=== PATIENT | male | born 1960 | race Caucasian/White ===

== ENCOUNTER 2021-09-21 08:11 | Emergency (ER) | payer OTHER, MEDICAID, SELFPAY ==
[2021-09-21] VITALS (9 sets, daily range): BP systolic 124–155; BP diastolic 77–98; PULSE 101–109; RESP 22–24; TEMP 36.9; O2SAT 93–98; BMI 24.0
--- NOTE | 2021-09-21 08:37 | DI.RAD.S_ITS ---
PROCEDURE: XR CHEST 2V INDICATIONS: shortness of breath TECHNIQUE: 2 views of the chest were acquired. COMPARISON: [facility], CR, XR CHEST 1 VIEW, 12/26/2020, 14:34. [facility], CR, XR CHEST 1 VIEW, 04/12/2021, 4:53. FINDINGS: Surgical changes and devices: None. Lungs and pleura: Scattered subsegmental atelectasis and/or scarring. No focal consolidation. No pleural effusion or pneumothorax. There is streaky and patchy opacities involving the right lung base. Mediastinum: Mediastinal contours are normal. Heart size is normal. Bones and chest wall: No suspicious bony abnormalities. Soft tissues appear unremarkable. IMPRESSION: Scattered subsegmental atelectasis and/or scarring. Streaky medial right lower lobe opacities probably atelectasis versus low-grade aspiration. No focal consolidation. If there is persistent clinical diagnostic uncertainty, continued surveillance with short interval radiographic followup after treatment is recommended. Dictated by: Danilo Garcia M.D. on 09/21/2021 at 9:43 Approved by: Danilo Garcia M.D. on 09/21/2021 at 9:47
[2021-09-21 08:49] LABS: Add Manual Diff / Slide Review NO; Basophils Absolute Auto 100 /uL (0-100); Basophils Percent Auto 0.7 % (0-2); Eosinophils Absolute Auto 100 /uL (0-450); Eosinophils Percent Auto 0.6 % (2-4); Hematocrit 45.9 % (41-53); Hemoglobin 15.3 g/dL (13.5-17.5); Lymphocytes Absolute Auto 900 /uL (1100-4500); Lymphocytes Percent Auto 9.6 % (25-40); Mean Corpuscular HGB Conc 33.3 % (30-36); Mean Corpuscular Hemoglobin 27.8 PG (26-34); Mean Corpuscular Volume 83.5 fL (80-100); Monocytes Absolute Auto 1200 /uL (0-900); Monocytes Percent Auto 13.4 % (3-14); Neutrophils Absolute Auto 7000 /uL (1500-7000); Neutrophils Percent Auto 75.7 % (50-75); Platelet Count 235 X10^3/uL (150-400); Red Blood Cell Count 5.49 X10^6/uL (4.5-5.9); Red Cell Distribution Width 18.1 % (11.6-14.8); White Blood Cell Count 9.3 X10^3/uL (4.5-11.0)
[2021-09-21 08:57] LABS: Lactate (Lactic Acid) 0.9 mmol/L (0.7-2.1)
[2021-09-21 08:58] LABS: Alanine Aminotransferase 28 IU/L (<50); Albumin 4.4 g/dL (3.5-5.0); Albumin Globulin Ratio 1.5 (1.0-2.8); Alkaline Phosphatase 121 U/L (38-126); Aspartate Aminotransferase 33 IU/L (17-59); Bilirubin Total 1.1 mg/dL (0.2-1.3); Blood Urea Nitrogen 37 mg/dL (9-20); Calcium 9.1 mg/dL (8.4-10.2); Carbon Dioxide 27 mmol/L (22-32); Chloride 101 mmol/L (98-107); Estimated Glomerular Filt Rate 46.5 mL/min (>60); Glucose 117 mg/dL (70-100); HEMOLYSIS < 15 (0-50); Potassium 4.1 mmol/L (3.4-5.1); Sodium 135 mmol/L (137-145); Total Protein 7.4 g/dL (6.3-8.2)
[2021-09-21 09:03] LABS: COVID19 -Nasal RAPID Negative (Negative)
[2021-09-21 09:06] LABS: NT-proBNP (BNP-Adult 18+) 3990 pg/mL (<125)
[2021-09-21] MEDS: ALBUTEROL HFA MDI 60 PUFF/8 GM INHALER INH (09:07)
--- NOTE | 2021-09-21 09:12 | ED.URI ---
HPI - URI/Sore Throat General Chief Complaint: Shortness of Breath/Dyspnea Stated Complaint: cant catch breath on different meds Time Seen by Provider: 09/21/21 08:54 Source: patient Mode of arrival: Ambulatory Limitations: no limitations History of Present Illness HPI Narrative: Patient here for cough cold congestion fevers chills with productive cough. Patient states former heavy cigarette smoker. History of bronchitis and pneumonia in the past. Out of his inhaler for many months. Recently moved back to [place] in the past year. Primary care is in [place]. Is on Eliquis but he states unsure why. He had a heart catheterization but states no blockage. Denies any stroke. Is on Lasix for CHF. Denies any limb swelling or weight gain. Related Data Previous Rx's Medication Instructions Recorded albuterol sulfate 90 mcg/actuation 2 inhalation INHALATION QID PRN 09/21/21 aerosol inhaler (Ventolin HFA) #6.7 gram benzonatate 100 mg capsule 100 mg PO TID PRN #20 cap 09/21/21 (Tessalon Perles) methylprednisolone 4 mg tablets in See Rx Instructions .ROUTE 09/21/21 a dose pack (Medrol (Jeovany)) .COMPLEX #21 each Allergies Allergy/AdvReac Type Severity Reaction Status Date / Time No Known Drug Allergies Allergy Verified 09/21/21 08:39 Review of Systems Review of Systems Narrative: GENERAL: Positivechills, fatigue, malaise, fever, sweats. HEENT: Denies sinus pain, ear pain, sore throat RESPIRATORY: Complains dyspnea, cough CARDIOVASCULAR: Denies chest pain, palpitations GASTROINTESTINAL: Denies nausea, vomiting, abdominal pain : Denies dysuria, frequency, hematuria MUSCULOSKELETAL: denies muscle or bony pain SKIN: Denies rash, skin lesions NEUROLOGIC: Denies weakness, numbness ROS Unobtainable: All systems reviewed & are unremarkable except as noted in HPI and below Patient History Social History Smoking Status: Current every day smoker Smoking Status: Current every day smoker alcohol intake frequency: holidays/special occasions only Substance Use Type: does not use Exam Narrative Exam Narrative: GENERAL: in no distress, not toxic not dyspneic HEAD: Normocephalic. EYES: Pupils equal round No scleral icterus. ENT: Mucous membranes moist. NECK: Trachea midline. CARDIOVASCULAR: Regular rate and rhythm without murmurs RESPIRATORY: Diminished lung sounds bilaterally. Speaks full sentences. No wheezes, rales, or rhonchi. GASTROINTESTINAL: Abdomen soft, non-tender EXTREMITIES: No gross deformities. BACK: No flank tenderness. NEURO: AOx4. SKIN: Warm and dry PSYCH: Not anxious, is cooperative Initial Vital Signs Initial Vital Signs: Vital Signs Temperature 98.4 F 09/21/21 08:30 Pulse Rate 106 H 09/21/21 08:30 Respiratory Rate 24 09/21/21 08:30 Blood Pressure 155/92 H 09/21/21 08:30 Pulse Oximetry 96 09/21/21 08:30 Course Course Course Narrative: No new issues during course of stay Orders Ordered: Discontinued Medications Albuterol (Albuterol Hfa Mdi 60 Puff/8 Gm Inhaler) 2 puff INH NOW ONE Stop: 09/21/21 08:55 Last Admin: 09/21/21 09:07 Dose: 2 puff Documented by: ALONZO Albuterol/Ipratropium (Albuterol/Ipratropium 3 Ml Ampul) 3 ml INH NOW ONE Stop: 09/21/21 09:14 Last Admin: 09/21/21 09:16 Dose: 3 ml Documented by: ALONZO Methylprednisolone (Methylprednisolone 125 Mg/2 Ml Vial) 125 mg IV NOW ONE Stop: 09/21/21 09:13 Last Admin: 09/21/21 09:20 Dose: 125 mg Documented by: ÓSCAR Reevaluation(s) Reevaluation #1: Patient feeling much better after Solu-Medrol and breathing treatments. Full and equal lung sounds. Not toxic. No dyspnea. Reviewed results with patient. Understands no forms of smoking. BNP reviewed with him but clinically not CHF. Time: 10:45 Vital Signs Vital signs: Vital Signs - 8 hr 09/21/21 08:30 09/21/21 09:05 09/21/21 09:17 Temperature 98.4 F Pulse Rate 106 H 106 H 106 H Respiratory Rate 24 24 22 Blood Pressure 155/92 H Pulse Oximetry 96 97 94 MDM - URI/Sore Throat Differential Diagnosis Differential diagnosis: Likely upper respiratory infection, viral infection, bronchitis and other (Pneumonia) Lab Data Result diagrams: 09/21/21 08:35 09/21/21 08:35 Labs: Lab Results 09/21/21 09/21/21 09/21/21 Range/Units 08:35 08:35 08:35 WBC 9.3 (4.5-11.0) X10^3/uL RBC 5.49 (4.5-5.9) X10^6/uL Hgb 15.3 (13.5-17.5) g/dL Hct 45.9 (41-53) % MCV 83.5 (80-100) fL MCH 27.8 (26-34) PG MCHC 33.3 (30-36) % RDW 18.1 H (11.6-14.8) % Plt Count 235 (150-400) X10^3/uL Neut % (Auto) 75.7 H (50-75) % Lymph % (Auto) 9.6 L (25-40) % Carter % (Auto) 13.4 (3-14) % Eos % (Auto) 0.6 L (2-4) % Baso % (Auto) 0.7 (0-2) % Neut # (Auto) 7000 (2374-8206) /uL Lymph # (Auto) 900 L (1819-8360) /uL Carter # (Auto) 1200 H (0-900) /uL Eos # (Auto) 100 (0-450) /uL Baso # (Auto) 100 (0-100) /uL Sodium 135 L (137-145) mmol/L Potassium 4.1 (3.4-5.1) mmol/L Chloride 101 (98-107) mmol/L Carbon Dioxide 27 (22-32) mmol/L BUN 37 H (9-20) mg/dL Creatinine 1.54 H (0.66-1.25) mg/dL Estimated GFR 46.5 L (>60) mL/min BUN/Creatinine Ratio 24.0 H (6-22) Glucose 117 H (70-100) mg/dL Lactate 0.9 (0.7-2.1) mmol/L Calcium 9.1 (8.4-10.2) mg/dL Total Bilirubin 1.1 (0.2-1.3) mg/dL AST 33 (17-59) IU/L ALT 28 (<50) IU/L Alkaline Phosphatase 121 (38-126) U/L NT-Pro-B Natriuret Pep 3990 H (<125) pg/mL Total Protein 7.4 (6.3-8.2) g/dL Albumin 4.4 (3.5-5.0) g/dL Globulin 3.0 (1.7-4.1) g/dL Albumin/Globulin Ratio 1.5 (1.0-2.8) Chlamy pneumoniae PCR (Not Detect) Adenovirus (PCR) (Not Detect) B. pertussis DNA (PCR) (Not Detecte) B.parapertussis DNA PCR (Not Detecte) Coronavirus OC43 (PCR) (Not Detect) Coronavirus HKU1 (PCR) (Not Detect) Coronavirus 229E (PCR) (Not Detect) SARS-CoV-2 (PCR) (Negative) Coronavirus NL63 (PCR) (Not Detect) Human Metapneumovir PCR (Not Detect) Influenza Type A (PCR) (Not Detect) Influenza Type B (PCR) (Not Detect) M. pneumoniae (PCR) (Not Detect) Parainfluenza 1 (PCR) (Not Detect) Parainfluenza 2 (PCR) (Not Detect) Parainfluenza 3 (PCR) (Not Detect) Parainfluenza 4 (PCR) (Not Detect) RSV (PCR) (Not Detect) Entero/Rhino (PCR) (Not Detect) 09/21/21 09/21/21 Range/Units 08:35 09:21 WBC (4.5-11.0) X10^3/uL RBC (4.5-5.9) X10^6/uL Hgb (13.5-17.5) g/dL Hct (41-53) % MCV (80-100) fL MCH (26-34) PG MCHC (30-36) % RDW (11.6-14.8) % Plt Count (150-400) X10^3/uL Neut % (Auto) (50-75) % Lymph % (Auto) (25-40) % Carter % (Auto) (3-14) % Eos % (Auto) (2-4) % Baso % (Auto) (0-2) % Neut # (Auto) (6737-0691) /uL Lymph # (Auto) (4587-2198) /uL Carter # (Auto) (0-900) /uL Eos # (Auto) (0-450) /uL Baso # (Auto) (0-100) /uL Sodium (137-145) mmol/L Potassium (3.4-5.1) mmol/L Chloride (98-107) mmol/L Carbon Dioxide (22-32) mmol/L BUN (9-20) mg/dL Creatinine (0.66-1.25) mg/dL Estimated GFR (>60) mL/min BUN/Creatinine Ratio (6-22) Glucose (70-100) mg/dL Lactate (0.7-2.1) mmol/L Calcium (8.4-10.2) mg/dL Total Bilirubin (0.2-1.3) mg/dL AST (17-59) IU/L ALT (<50) IU/L Alkaline Phosphatase (38-126) U/L NT-Pro-B Natriuret Pep (<125) pg/mL Total Protein (6.3-8.2) g/dL Albumin (3.5-5.0) g/dL Globulin (1.7-4.1) g/dL Albumin/Globulin Ratio (1.0-2.8) Chlamy pneumoniae PCR Not detected (Not Detect) Adenovirus (PCR) Not detected (Not Detect) B. pertussis DNA (PCR) Not detected (Not Detecte) B.parapertussis DNA PCR Not detected (Not Detecte) Coronavirus OC43 (PCR) Not detected (Not Detect) Coronavirus HKU1 (PCR) Not detected (Not Detect) Coronavirus 229E (PCR) Not detected (Not Detect) SARS-CoV-2 (PCR) Negative Not detected (Negative) Coronavirus NL63 (PCR) Not detected (Not Detect) Human Metapneumovir PCR Not detected (Not Detect) Influenza Type A (PCR) Not detected (Not Detect) Influenza Type B (PCR) Not detected (Not Detect) M. pneumoniae (PCR) Not detected (Not Detect) Parainfluenza 1 (PCR) Not detected (Not Detect) Parainfluenza 2 (PCR) Not detected (Not Detect) Parainfluenza 3 (PCR) Not detected (Not Detect) Parainfluenza 4 (PCR) Not detected (Not Detect) RSV (PCR) Not detected (Not Detect) Entero/Rhino (PCR) Detected H (Not Detect) Imaging Data Chest x-ray: Radiologist's Impression: [address] [address] XRay Report Signed Patient: Jeffrey Blanco MR#: [id number] : 1960 Acct:[id number] Age/Sex: 61 / M Date of Service: 09/21/21 Loc: ED Accession Number: [id number] ?? Procedure: XR chest 2V Ordering Provider: Ludin Burger MD PROCEDURE:? XR CHEST 2V ? INDICATIONS:? shortness of breath ? TECHNIQUE:? 2 views of the chest were acquired.? ? COMPARISON:? [facility], CR, XR CHEST 1 VIEW, 12/26/2020, 14:34.? [facility], CR, XR CHEST 1 VIEW, 04/12/2021, 4:53. ? FINDINGS:? ? Surgical changes and devices:? None.? ? Lungs and pleura:? Scattered subsegmental atelectasis and/or scarring. No focal consolidation.? No pleural effusion or pneumothorax.? There is streaky and patchy opacities involving the right lung base. ? Mediastinum:? Mediastinal contours are normal.? Heart size is normal.? ? Bones and chest wall:? No suspicious bony abnormalities.? Soft tissues appear unremarkable.? ? IMPRESSION:? Scattered subsegmental atelectasis and/or scarring.? Streaky medial right lower lobe opacities probably atelectasis versus low-grade aspiration.? No focal consolidation.? ? If there is persistent clinical diagnostic uncertainty, continued surveillance with short interval radiographic followup after treatment is recommended. ? ? ? Dictated by: Danilo Garcia M.D. on 09/21/2021 at 9:43 ? ? Approved by: Danilo Garcia M.D. on 09/21/2021 at 9:47 ? ECG Data Interpretation: Sinus tachycardia rate [address] elevation or depression. MDM Narrative Medical decision making narrative: Appropriate for discharge home. Patient not toxic. No antibiotics indicated. Reviewed patient. Rhino virus infection causing acute bronchitis. Improved with treatment here. Prescription provided and inhaler given to go home with. Tachycardia noted. Likely from breathing treatment. Patient in no distress. Resting comfortably. Blood pressure improved. Clinically likely not pulmonary embolism. No D-dimer indicated this time. No hypoxia. Patient positive for rhino virus Discharge Plan Departure Patient Disposition: Home Clinical Impression: Parainfluenza virus rhinopharyngitis, Acute bronchitis Instructions: DI for Viral Upper Respiratory Infection -- Adult Activity Restrictions/Additional Instructions: No smoking. See family doctor in a week for recheck. Use inhaler 2 puffs every 4 hours as needed for cough or shortness of breath. Return immediately if not improving or worsening questions or concerns. Continue steroid pack tomorrow. Prescriptions: New benzonatate [Tessalon Perles] 100 mg capsule 100 mg PO TID PRN (Reason: cough) Qty: 20 0RF methylprednisolone [Medrol (Jeovany)] 4 mg tablets,dose pack See Rx Instructions .ROUTE .COMPLEX Qty: 21 0RF Rx Instructions: orally per package directions albuterol sulfate [Ventolin HFA] 90 mcg/actuation HFA aerosol inhaler 2 inhalation INHALATION QID PRN (Reason: shortness of breath or wheezing) Qty: 6.7 0RF
[2021-09-21] MEDS: ALBUTEROL/IPRATROPIUM 3 ML AMPUL INH (09:16)
--- NOTE | 2021-09-21 09:18 | RT ---
pt nemo neb tx well, mild sob noted and pt on room air
[2021-09-21] MEDS: methylPREDNISolone 125 MG/2 ML VIAL IV (09:20)
[2021-09-21 10:39] LABS: Adenovirus Not Detected (Not Detect); B. parapertussis Not Detected (Not Detecte); Bordetella pertussis Not Detected (Not Detecte); Chlamydophila pneumoniae Not Detected (Not Detect); Coronavirus 229E Not Detected (Not Detect); Coronavirus HKU1 Not Detected (Not Detect); Coronavirus NL 63 Not Detected (Not Detect); Coronavirus OC43 Not Detected (Not Detect); Human Metapneumovirus Not Detected (Not Detect); Human Rhinovirus/Enterovirus Detected (Not Detect); Influenza A Not Detected (Not Detect); Influenza B Not Detected (Not Detect); Mycoplasma pneumoniae Not Detected (Not Detect); Parainfluenza Virus 1 Not Detected (Not Detect); Parainfluenza Virus 2 Not Detected (Not Detect); Parainfluenza Virus 3 Not Detected (Not Detect); Parainfluenza Virus 4 Not Detected (Not Detect); Respiratory Syncytial Virus Not Detected (Not Detect); SARS- CoV-2 Not Detected (Not Detecte)
== END 2021-09-21 11:03 | disposition home or self-care (01) ==
PROVIDERS: Emergency Provider Emergency Medicine
DX: J20.4 Acute bronchitis due to parainfluenza virus (principal); Z20.822 Contact with and (suspected) exposure to COVID-19; Z87.891 Personal history of nicotine dependence
CPT/HCPCS: 36415; 71046; 80053; 83605; 83880; 85025; 87633; 87635; 93005; 94640; 96374; 99284; C9803; A9270; J2930

== ENCOUNTER 2023-04-19 14:37 | Emergency (ER) | payer OTHER, MEDICAID, SELFPAY ==
[2023-04-19] VITALS (8 sets, daily range): BP systolic 132–157; BP diastolic 89–95; PULSE 91–107; RESP 20–41; TEMP 36.7; O2SAT 93–99; BMI 25.1
--- NOTE | 2023-04-19 14:40 | DI.RAD.S_ITS ---
PROCEDURE: XR CHEST 1V INDICATIONS: Shortness of breath TECHNIQUE: One view of the chest was acquired. COMPARISON: [facility], CT, CT CHEST WITHOUT CONTRAST, 01/07/2023, 16:28. [facility], CR, XR CHEST 2V, 09/21/2021, 8:44. FINDINGS: Surgical changes and devices: None. Lungs and pleura: Emphysematous change. Streaky opacity at the lingula and right lung base most consistent with scarring. No pleural effusions or pneumothorax. Mediastinum: Mediastinal contours appear normal. Heart size appears enlarged. Bones and chest wall: No suspicious bony lesions. Overlying soft tissues appear unremarkable. IMPRESSION: No acute cardiopulmonary abnormality identified. Emphysematous change. Dictated by: Wilbur Kumar M.D. on 04/19/2023 at 15:07 Approved by: Wilbur Kumar M.D. on 04/19/2023 at 15:10
--- NOTE | 2023-04-19 14:48 | DI.CT.S_ITS ---
PROCEDURE: CT ANGIO CHEST PE PROTOCOL INDICATIONS: sob, hx pe with covid TECHNIQUE: After the administration of intravenous contrast, 2 mm thick sections acquired from the pulmonary apices to the posterior costophrenic angles. 3-dimensional maximum intensity projection (MIP) coronal and sagittal reformats were then acquired through the thorax. For radiation dose reduction, the following was used: automated exposure control, adjustment of mA and/or kV according to patient size. COMPARISON: [facility], CT, CT CHEST WITHOUT CONTRAST, 06/19/2022, 14:03. [facility], CT, CT CHEST WITHOUT CONTRAST, 01/07/2023, 16:28. [facility], CR, XR CHEST 1V, 04/19/2023, 14:38. FINDINGS: Image quality: Excellent. Pulmonary arteries: Pulmonary arteries are normal in size, and demonstrate no intraluminal filling defects to suggest central pulmonary embolism. Lungs and pleura: Severe emphysematous change. Dependent airspace opacity. Nodular opacity at the right lung base, similar. Bronchial wall thickening. Trace secretions in the trachea. Trace bilateral pleural effusions. No pneumothorax. Mediastinum: Heart size is enlarged, without pericardial effusion. Three-vessel coronary artery calcifications. Precarinal node measuring 1.6 cm, (), previously 1.4 cm. Additional shotty mediastinal lymph nodes. Thoracic aorta is normal in caliber and enhancement. Esophagus is normal in caliber, without hiatal hernia. Bones and chest wall: No suspicious bony lesions. Ribs and thoracic spine appear intact throughout. Thyroid gland is unremarkable. No axillary or supraclavicular adenopathy. Abdomen: Visualized upper abdominal solid organs appear normal in the early arterial phase of enhancement. Post cholecystectomy. IMPRESSION: 1. No pulmonary embolism. 2. Severe emphysematous change. Bronchial wall thickening. 3. Dependent opacity. This could be due to atelectasis and scarring. Nodular opacity at the right lung base is similar. Recommend attention on follow-up CT. 4. Enlarged and shotty mediastinal lymph nodes. Dictated by: Wilbur Kumar M.D. on 04/19/2023 at 16:22 Approved by: Wilbur Kumar M.D. on 04/19/2023 at 16:38
[2023-04-19] MEDS: ALBUTEROL 2.5 MG/3 ML NEB (ADULT) 20 MG INH (14:56)
[2023-04-19] MEDS: IPRATROPIUM 0.5 MG/2.5 ML NEB INH (14:56)
[2023-04-19 15:02] LABS: INR 1.2 (0.9-1.3); Prothrombin Time 14.1 SECONDS (10.1-12.7)
[2023-04-19] MEDS: MORPHINE 4 MG/ML INJ IV (15:03)
[2023-04-19] MEDS: methylPREDNISolone 125 MG/2 ML VIAL IV (15:03)
[2023-04-19 15:07] LABS: Lactate (Lactic Acid) 1.6 mmol/L (0.7-2.1)
[2023-04-19 15:09] LABS: Alanine Aminotransferase 70 IU/L (<50); Albumin 3.5 g/dL (3.5-5.0); Albumin Globulin Ratio 1.2 (1.0-2.8); Alkaline Phosphatase 123 U/L (38-126); Aspartate Aminotransferase 41 IU/L (17-59); Blood Urea Nitrogen 24 mg/dL (9-20); Calcium 8.3 mg/dL (8.4-10.2); Carbon Dioxide 32 mmol/L (22-32); Chloride 102 mmol/L (98-107); Estimated Glomerular Filt Rate > 60 mL/min (>60); Globulin 2.9 g/dL (1.7-4.1); Glucose 100 mg/dL (80-110); HEMOLYSIS < 15 (0-50); Sodium 139 mmol/L (137-145); Total Protein 6.4 g/dL (6.3-8.2)
[2023-04-19 15:13] LABS: Add Manual Diff / Slide Review NO; Basophils Absolute Auto 0 /uL (0-100); Basophils Percent Auto 0.4 % (0-2); Eosinophils Absolute Auto 100 /uL (0-450); Eosinophils Percent Auto 1.3 % (2-4); Hematocrit 39.4 % (41-53); Hemoglobin 12.8 g/dL (13.5-17.5); Lymphocytes Absolute Auto 900 /uL (1100-4500); Lymphocytes Percent Auto 11.7 % (25-40); Mean Corpuscular HGB Conc 32.6 % (30-36); Mean Corpuscular Hemoglobin 26.6 PG (26-34); Mean Corpuscular Volume 81.6 fL (80-100); Monocytes Absolute Auto 800 /uL (0-900); Monocytes Percent Auto 10.1 % (3-14); Neutrophils Absolute Auto 6100 /uL (1500-7000); Neutrophils Percent Auto 76.5 % (50-75); Platelet Count 149 X10^3/uL (150-400); Red Blood Cell Count 4.82 X10^6/uL (4.5-5.9); Red Cell Distribution Width 18.4 % (11.6-14.8); White Blood Cell Count 7.9 X10^3/uL (4.5-11.0)
[2023-04-19 15:20] LABS: NT-proBNP (BNP-Adult 18+) 6150 pg/mL (<125); Troponin I 0.039 ng/mL (0.01-0.034)
[2023-04-19 15:50] LABS: Adenovirus Not Detected (Not Detect); Coronavirus 229E Not Detected (Not Detect); Coronavirus HKU1 Not Detected (Not Detect); Coronavirus NL 63 Not Detected (Not Detect); Coronavirus OC43 Not Detected (Not Detect); Human Metapneumovirus Not Detected (Not Detect); Human Rhinovirus/Enterovirus Not Detected (Not Detect); SARS- CoV-2 Not Detected (Not Detecte)
[2023-04-19 15:51] LABS: B. parapertussis Not Detected (Not Detecte); Bordetella pertussis Not Detected (Not Detecte); Chlamydophila pneumoniae Not Detected (Not Detect); Influenza A Not Detected (Not Detect); Influenza B Not Detected (Not Detect); Mycoplasma pneumoniae Not Detected (Not Detect); Parainfluenza Virus 1 Not Detected (Not Detect); Parainfluenza Virus 2 Not Detected (Not Detect); Parainfluenza Virus 3 Not Detected (Not Detect); Parainfluenza Virus 4 Not Detected (Not Detect); Respiratory Syncytial Virus Not Detected (Not Detect)
--- NOTE | 2023-04-19 16:35 | ED_ITS ---
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 Patient has not been following regularly with Cardiology. Patient states he has had prior blood clots he is on Eliquis daily. Patient presents with increased shortness of breath. Patient notes that he is discharged from [facility] 2 days ago with an increase of O2 and was gotten a concentrator, he had been going through his oxygen faster and he was requiring more than 5 L nasal cannula. Patient states he was not discharged with any steroids, he had pneumonia a month ago was treated with antibiotics including azithromycin steroids at that time. He denies fevers or chills. Increased shortness of breath and wheezing and tightness in his chest. Denies active chest pain. No nausea no vomiting, no diarrhea constipation, denies any new swelling in his extremities, abdominal back or flank pain. No syncope. Patient states he takes medication for blood pressure, cholesterol, denies any cardiac arrhythmias, states Eliquis for blood clots. Patient states that he was given a steroid inhaler at his discharge but has not been using it more than once total. Today had increasing shortness when out reach a came to see patient and saw him struggling to breathe. Patient's social situation currently staying in a trailer, they have to move the trailer they can use generator to use his concentrate or and have that available. He is short of albuterol, he states he ran out of an oxygen tank today but the concentrate or is still working. Patient indicated that he sometimes use methamphetamine or is rounded. His friend at bedside states that she thinks he was confused and hypoxic when he told me that. He denies any other drug use, occasional tobacco. Denies active alcohol use. Related Data Previous Rx's Medication Instructions Recorded albuterol sulfate 90 mcg/actuation 2 inhalation inhalation QID PRN 09/21/21 aerosol inhaler (Ventolin HFA) shortness of breath or wheezing #6.7 grams benzonatate 100 mg capsule 100 mg PO TID PRN cough #20 caps 09/21/21 (Tessalon Perlviridiana) methylprednisolone 4 mg tablets in See Rx Instructions PO .COMPLEX 09/21/21 a dose pack (Medrol (Jeovany)) #21 ea albuterol sulfate 2.5 mg/3 mL 2.5 mg (3 mL) inhalation Q4H PRN 04/19/23 (0.083 %) solution for nebulization shortness of breath or wheezing #180 mL prednisone 10 mg tablets in a dose See Rx Instructions PO .COMPLEX 04/19/23 pack #21 ea Allergies Allergy/AdvReac Type Severity Reaction Status Date / Time shellfish derived Allergy Verified 04/19/23 14:48 Review of Systems Review of Systems ROS Unobtainable: All systems reviewed & are unremarkable except as noted in HPI and below Patient History Social History Smoking Status: Current every day smoker Smoking Status: Current every day smoker alcohol intake frequency: holidays/special occasions only Substance Use Type: does not use Exam Narrative Exam Narrative: GEN: well nourished, well appearing male, alert and oriented, patient appears to be in moderate to severe distress. HEENT: Atraumatic, pupils are equal round reactive to light, extraocular movements are intact, nares are clear. Throat is clear without any exudates, erythema, tonsillar enlargement or uvular deviation HEART: Mildly tachycardic Regular rate and rhythm without murmur, clicks, rubs. No carotid bruits, pulses are equal in upper and lower extremities. No edema bilateral lower extremities. LUNGS:Lungs bilateral expiratory wheeze upper and lower chest but quite diminished with minimal movement, patient has accessory muscle use and speaks in 1-2 word sentences. No rales, crackles, chest moves symmetrically ABD:bowel sounds normal, soft, non-tender, no guarding, rebound, rigidity, no masses noted, no hepatosplenomegaly :No CVA tenderness MSCL: Non-tender, no muscle atrophy, muscles strength 5/5 upper and lower extremities, full range of motion, normal gait NEURO:CN 2-12 intact, sensation normal. SKIN: No rash, erythema or other skin changes Initial Vital Signs Initial Vital Signs: Vital Signs Temperature 98.1 F 04/19/23 14:48 Pulse Rate 105 H 04/19/23 14:48 Respiratory Rate 32 H 04/19/23 14:48 Blood Pressure 138/95 H 04/19/23 14:48 Pulse Oximetry 98 04/19/23 14:48 Oxygen Delivery Method Nasal Cannula 04/19/23 14:48 Oxygen Flow Rate 6 04/19/23 14:48 Course Orders Ordered: Discontinued Medications Albuterol (Albuterol 2.5 Mg/3 Ml Neb (Adult)) 20 mg INH NOW ONE Stop: 04/19/23 14:52 Last Admin: 04/19/23 14:56 Dose: 20 mg Documented By: JAQUAN Furosemide (Furosemide 40 Mg/4 Ml Vial) 40 mg IV NOW ONE Stop: 04/19/23 16:20 Last Admin: 04/19/23 17:07 Dose: 40 mg Documented By: YOANDY Ipratropium [place] (Ipratropium 0.5 Mg/2.5 Ml Neb) 0.5 mg INH NOW ONE Stop: 04/19/23 14:52 Last Admin: 04/19/23 14:56 Dose: 0.5 mg Documented By: JAQUAN Methylprednisolone (Methylprednisolone 125 Mg/2 Ml Vial) 125 mg IV NOW ONE Stop: 04/19/23 14:49 Last Admin: 04/19/23 15:03 Dose: 125 mg Documented By: YOANDY Morphine Sulfate (Morphine 4 Mg/Ml Inj) 4 mg IV NOW ONE Stop: 04/19/23 14:49 Last Admin: 04/19/23 15:03 Dose: 4 mg Documented By: YOANDY Vital Signs Vital signs: Vital Signs - 8 hr 04/19/23 14:48 04/19/23 14:57 04/19/23 15:00 Temperature 98.1 F Pulse Rate 105 H 100 H 101 H Respiratory Rate 32 H 22 34 H Blood Pressure 138/95 H 140/95 H Pulse Oximetry 98 98 96 Oxygen Delivery Method Nasal Cannula Nasal Cannula Nasal Cannula Oxygen Flow Rate 6 2 6 04/19/23 15:30 04/19/23 18:12 04/19/23 18:30 Temperature Pulse Rate 91 H 107 H 104 H Respiratory Rate 21 41 H Blood Pressure 157/91 H Pulse Oximetry 94 99 Oxygen Delivery Method Nasal Cannula Oxygen Flow Rate 2 04/19/23 19:00 04/19/23 19:02 04/19/23 19:02 Temperature Pulse Rate 101 H 102 H Respiratory Rate 20 31 H Blood Pressure 132/89 Pulse Oximetry 93 94 Oxygen Delivery Method Nasal Cannula Oxygen Flow Rate 2 MDM - SOB/Dyspnea Lab Data 04/19/23 14:45 04/19/23 14:45 Labs: Lab Results 04/19/23 04/19/23 04/19/23 Range/Units 14:39 14:45 14:45 WBC 7.9 (4.5-11.0) X10^3/uL RBC 4.82 (4.5-5.9) X10^6/uL Hgb 12.8 L (13.5-17.5) g/dL Hct 39.4 L (41-53) % MCV 81.6 (80-100) fL MCH 26.6 (26-34) PG MCHC 32.6 (30-36) % RDW 18.4 H (11.6-14.8) % Plt Count 149 L (150-400) X10^3/uL Neut % (Auto) 76.5 H (50-75) % Lymph % (Auto) 11.7 L (25-40) % [place] % (Auto) 10.1 (3-14) % Eos % (Auto) 1.3 L (2-4) % Baso % (Auto) 0.4 (0-2) % Neut # (Auto) 6100 (1880-0243) /uL Lymph # (Auto) 900 L (0166-5706) /uL [place] # (Auto) 800 (0-900) /uL Eos # (Auto) 100 (0-450) /uL Baso # (Auto) 0 (0-100) /uL PT 14.1 H (10.1-12.7) SECONDS INR 1.2 (0.9-1.3) Sodium (137-145) mmol/L Potassium (3.4-5.1) mmol/L Chloride (98-107) mmol/L Carbon Dioxide (22-32) mmol/L BUN (9-20) mg/dL Creatinine (0.66-1.25) mg/dL Estimated GFR (>60) mL/min BUN/Creatinine Ratio (6-22) Glucose (80-110) mg/dL Lactate (0.7-2.1) mmol/L Calcium (8.4-10.2) mg/dL Total Bilirubin (0.2-1.3) mg/dL AST (17-59) IU/L ALT (<50) IU/L Alkaline Phosphatase (38-126) U/L Troponin I (0.01-0.034) ng/mL NT-Pro-B Natriuret Pep (<125) pg/mL Total Protein (6.3-8.2) g/dL Albumin (3.5-5.0) g/dL Globulin (1.7-4.1) g/dL Albumin/Globulin Ratio (1.0-2.8) Chlamy pneumoniae PCR Not detected (Not Detect) Adenovirus (PCR) Not detected (Not Detect) B. pertussis DNA (PCR) Not detected (Not Detecte) B.parapertussis DNA PCR Not detected (Not Detecte) Coronavirus OC43 (PCR) Not detected (Not Detect) Coronavirus HKU1 (PCR) Not detected (Not Detect) Coronavirus 229E (PCR) Not detected (Not Detect) SARS-CoV-2 (PCR) Not detected (Not Detecte) Coronavirus NL63 (PCR) Not detected (Not Detect) Human Metapneumovir PCR Not detected (Not Detect) Influenza Type A (PCR) Not detected (Not Detect) Influenza Type B (PCR) Not detected (Not Detect) M. pneumoniae (PCR) Not detected (Not Detect) Parainfluenza 1 (PCR) Not detected (Not Detect) Parainfluenza 2 (PCR) Not detected (Not Detect) Parainfluenza 3 (PCR) Not detected (Not Detect) Parainfluenza 4 (PCR) Not detected (Not Detect) RSV (PCR) Not detected (Not Detect) Entero/Rhino (PCR) Not detected (Not Detect) 04/19/23 04/19/23 04/19/23 Range/Units 14:45 14:45 16:40 WBC (4.5-11.0) X10^3/uL RBC (4.5-5.9) X10^6/uL Hgb (13.5-17.5) g/dL Hct (41-53) % MCV (80-100) fL MCH (26-34) PG MCHC (30-36) % RDW (11.6-14.8) % Plt Count (150-400) X10^3/uL Neut % (Auto) (50-75) % Lymph % (Auto) (25-40) % [place] % (Auto) (3-14) % Eos % (Auto) (2-4) % Baso % (Auto) (0-2) % Neut # (Auto) (7079-7802) /uL Lymph # (Auto) (0956-2651) /uL [place] # (Auto) (0-900) /uL Eos # (Auto) (0-450) /uL Baso # (Auto) (0-100) /uL PT (10.1-12.7) SECONDS INR (0.9-1.3) Sodium 139 (137-145) mmol/L Potassium 4.0 (3.4-5.1) mmol/L Chloride 102 (98-107) mmol/L Carbon Dioxide 32 (22-32) mmol/L BUN 24 H (9-20) mg/dL Creatinine 1.00 (0.66-1.25) mg/dL Estimated GFR > 60 (>60) mL/min BUN/Creatinine Ratio 24.0 H (6-22) Glucose 100 (80-110) mg/dL Lactate 1.6 (0.7-2.1) mmol/L Calcium 8.3 L (8.4-10.2) mg/dL Total Bilirubin 2.0 H (0.2-1.3) mg/dL AST 41 (17-59) IU/L ALT 70 H (<50) IU/L Alkaline Phosphatase 123 (38-126) U/L Troponin I 0.039 H 0.038 H (0.01-0.034) ng/mL NT-Pro-B Natriuret Pep 6150 H (<125) pg/mL Total Protein 6.4 (6.3-8.2) g/dL Albumin 3.5 (3.5-5.0) g/dL Globulin 2.9 (1.7-4.1) g/dL Albumin/Globulin Ratio 1.2 (1.0-2.8) Chlamy pneumoniae PCR (Not Detect) Adenovirus (PCR) (Not Detect) B. pertussis DNA (PCR) (Not Detecte) B.parapertussis DNA PCR (Not Detecte) Coronavirus OC43 (PCR) (Not Detect) Coronavirus HKU1 (PCR) (Not Detect) Coronavirus 229E (PCR) (Not Detect) SARS-CoV-2 (PCR) (Not Detecte) Coronavirus NL63 (PCR) (Not Detect) Human Metapneumovir PCR (Not Detect) Influenza Type A (PCR) (Not Detect) Influenza Type B (PCR) (Not Detect) M. pneumoniae (PCR) (Not Detect) Parainfluenza 1 (PCR) (Not Detect) Parainfluenza 2 (PCR) (Not Detect) Parainfluenza 3 (PCR) (Not Detect) Parainfluenza 4 (PCR) (Not Detect) RSV (PCR) (Not Detect) Entero/Rhino (PCR) (Not Detect) Imaging Data Chest x-ray: Radiologist's Impression: Close Chest CTA (Signed) Call,Wilbur - 04/19/23 Chest X-Ray (Signed) Call,Wilbur - 04/19/23 EKG Rpt. 09/21/21 Chest X-Ray (Signed) Danilo Garcia - 09/21/21 Launch?[facility] [address] [address] XRay Report Signed Patient: Jeffrey Blanco MR#: [id number] : 1960 Acct:[id number] Age/Sex: 63 / M Date of Service: 04/19/23 Loc: ED Accession Number: [id number] ?? Procedure: XR chest 1V Ordering Provider: Chrystal Mireles D.O. PROCEDURE:? XR CHEST 1V ? INDICATIONS:? Shortness of breath ? TECHNIQUE:? One view of the chest was acquired.? ? COMPARISON:? [facility], CT, CT CHEST WITHOUT CONTRAST, 01/07/2023, 16:28.? [facility], CR, XR CHEST 2V, 09/21/2021, 8:44. ? FINDINGS:? ? Surgical changes and devices:? None.? ? Lungs and pleura:? Emphysematous change.? Streaky opacity at the lingula and right lung base most consistent with scarring.? No pleural effusions or pneumothorax.? ? Mediastinum:? Mediastinal contours appear normal.? Heart size appears enlarged.? ? Bones and chest wall:? No suspicious bony lesions.? Overlying soft tissues appear unremarkable.? ? IMPRESSION:? No acute cardiopulmonary abnormality identified.? Emphysematous change. ? ? Dictated by: Wilbur Kumar M.D. on 04/19/2023 at 15:07 ? ? Approved by: Wilbur Kumar M.D. on 04/19/2023 at 15:10? CT scan - chest: Radiologist's Impression: Jeffrey Blanco??63??M??1960 ? Allergy/Adv: shellfish derived Close Chest CTA (Signed) Stacy,Wilbur - 04/19/23 Chest X-Ray (Signed) Stacy,Wilbur - 04/19/23 EKG Rpt. 09/21/21 Chest X-Ray (Signed) Danilo Garcia - 09/21/21 Launch?[place] [address] CT Scan Report Signed Patient: Jeffrey Blanco MR#: [id number] : 1960 Acct:[id number] Age/Sex: 63 / M Date of Service: 04/19/23 Loc: ED Accession Number: [id number] ?? Procedure: CT angio chest PE protocol Ordering Provider: Chrystal Mireles D.O. PROCEDURE:? CT ANGIO CHEST PE PROTOCOL ? INDICATIONS:? sob, hx pe with covid ? TECHNIQUE:? After the administration of intravenous contrast, 2 mm thick sections acquired from the pulmonary apices to the posterior costophrenic angles.? 3-dimensional maximum intensity projection (MIP) coronal and sagittal reformats were then acquired through the thorax.? For radiation dose reduction, the following was used:? automated exposure control, adjustment of mA and/or kV according to patient size.? ? COMPARISON:? [facility], CT, CT CHEST WITHOUT CONTRAST, 06/19/2022, 14:03.? [facility], CT, CT CHEST WITHOUT CONTRAST, 01/07/2023, 16:28.? [facility], CR, XR CHEST 1V, 04/19/2023, 14:38. ? FINDINGS:? Image quality:? Excellent.? ? Pulmonary arteries:? Pulmonary arteries are normal in size, and demonstrate no intraluminal filling defects to suggest central pulmonary embolism.? ? Lungs and pleura:? Severe emphysematous change.? Dependent airspace opacity.? Nodular opacity at the right lung base, similar.? Bronchial wall thickening.? Trace secretions in the trachea.? Trace bilateral pleural effusions.? No pneumothorax. ? Mediastinum:? Heart size is enlarged, without pericardial effusion.? Three- vessel coronary artery calcifications.? Precarinal node measuring 1.6 cm, (), previously 1.4 cm.? Additional shotty mediastinal lymph nodes.? Thoracic aorta is normal in caliber and enhancement.? Esophagus is normal in caliber, without hiatal hernia.? ? Bones and chest wall:? No suspicious bony lesions.? Ribs and thoracic spine appear intact throughout.? Thyroid gland is unremarkable.? No axillary or supraclavicular adenopathy.? ? Abdomen:? Visualized upper abdominal solid organs appear normal in the early arterial phase of enhancement.? Post cholecystectomy.? ? IMPRESSION:? 1. No pulmonary embolism. ? 2. Severe emphysematous change.? Bronchial wall thickening.? ? 3. Dependent opacity.? This could be due to atelectasis and scarring.? Nodular opacity at the right lung base is similar.? Recommend attention on follow-up CT. ? 4. Enlarged and shotty mediastinal lymph nodes.? Dictated by: Wilbur Kumar M.D. on 04/19/2023 at 16:22 ? ? Approved by: Wilbur Kumar M.D. on 04/19/2023 at 16:38?? ECG Data Attestation: I personally reviewed and interpreted this ECG as follows: Prior ECG tracings: available for review Interpretation: Sinus tachycardia rate of 105 NC 154 QRS of [address]-elevation right bundle-branch block. Patient has a prior from 09/21/2021 which appears similar. MDM Narrative Medical decision making narrative: This is a 63-year-old male with history of COPD recently started on home O2, prior pulmonary emboli and cardiac issues possibly valvular issues. Patient presents in acute respiratory distress appears to have COPD exacerbation, was given Solu-Medrol, 20 mg albuterol with Atrovent had significant improvement. He is now able to ambulate at 2 L, V conversant. Workup did include CTA of the chest rule out PE as he is had prior issues he is on Eliquis, hemoglobin is 12 prior was 15 2 years ago, platelets are 149. CMP otherwise normal, troponins are indeterminate but stable BNP is 6100. Respiratory panel is negative. Discussed with patient he has significantly improved is not felt to require admission. He feels comfortable to return home. There are some logistical barriers to discharge with O2. Patient has concentrator at home but only a few bottles of oxygen and is unable to find someone to bring one. RT was working to get additinal home cannisters O2 delivered in the next few days. Discharge Plan Departure Patient Disposition: Home Clinical Impression: Acute exacerbation of chronic obstructive pulmonary disease, CHF (congestive heart failure) Instructions: Chronic Obstructive Pulmonary Disease Activity Restrictions/Additional Instructions: Please follow-up for recheck. You can try Dr. Geneva guerrero or some of the other local primary care physicians for alternative options. Please call to set up an appointment. You can also call the number on the back of your insurance card for alternative options for primary care. Please make sure to take your medications daily. Use your steroid inhaler twice daily in the morning and evening whether you feel good or bad. You can continue to use your albuterol every 4 hours as needed nebulized. Take oral steroids once daily until gone, you received initial dose through the IV today. Prescription sent to [facility]. If you are having worsening symptoms, if you run out of oxygen, if you are having any chest pain, shortness of breath, persistent vomiting, lightheadedness or passing out, confusion or other new or concerning changes return to the emergency department. Prescriptions: New albuterol sulfate 2.5 mg /3 mL (0.083 %) solution for nebulization 2.5 mg inhalation Q4H PRN (Reason: shortness of breath or wheezing) Qty: 180 0RF prednisone 10 mg tablets,dose pack See Rx Instructions .ROUTE .COMPLEX Qty: 21 0RF Rx Instructions: Take 6 tablets p.o. x1 day, then 5 tablets p.o. x1 day, then 4 tablets p.o. x1 day, then 3 tablets p.o. x1 day, then 2 tablets p.o. x1 day, then 1 tablet p.o. x1 day No Action benzonatate [Tessalon Perles] 100 mg capsule 100 mg PO TID PRN (Reason: cough) Qty: 20 0RF methylprednisolone [Medrol (Jeovany)] 4 mg tablets,dose pack See Rx Instructions .ROUTE .COMPLEX Qty: 21 0RF Rx Instructions: orally per package directions albuterol sulfate [Ventolin HFA] 90 mcg/actuation HFA aerosol inhaler 2 inhalation INHALATION QID PRN (Reason: shortness of breath or wheezing) Qty: 6.7 0RF Referrals: Alesha Guerrero DO [Physician] - Stand Alone Forms: Patient Portal/API
[2023-04-19] MEDS: FUROSEMIDE 40 MG/4 ML VIAL IV (17:07)
[2023-04-19 17:12] LABS: Troponin I 0.038 ng/mL (0.01-0.034)
--- NOTE | 2023-04-19 18:44 | PC.NURSE ---
Patient ambulated on 2L O2 by NC with a saturation from 91-92%. Provider notified.
--- NOTE | 2023-04-19 19:12 | PC.NURSE ---
Patient to be discharged. He needs O2 to get home where he has a compressor and 1/2 full tank waiting for him. RT cxurrently working with [employer] to get a tank for him to go home with.
== END 2023-04-19 20:48 | disposition home or self-care (01) ==
PROVIDERS: Emergency Provider Emergency Medicine
DX: J44.1 Chronic obstructive pulmonary disease with (acute) exacerbation (principal); I50.9 Heart failure, unspecified; Z79.01 Long term (current) use of anticoagulants
CPT/HCPCS: 36415; 71045; 71275; 80053; 83605; 83880; 84484; 85025; 85610; 87633; 93005; 94640; 96374; 96375; 99284; 99285; J1940; J2270; J2930; J7613

== ENCOUNTER 2023-04-25 05:40 | Observation (INO) | payer OTHER, MEDICAID, SELFPAY ==
[2023-04-25] VITALS (31 sets, daily range): BP systolic 142–181; BP diastolic 78–111; PULSE 64–126; RESP 18–40; TEMP 36.3–37; O2SAT 88–100; BMI 22.9
--- NOTE | 2023-04-25 05:41 | ED.GENADULT ---
HPI - General Adult <Petr Aguilar DO - Last Filed: 04/28/23 07:04> General Chief complaint: Shortness of Breath/Dyspnea Stated complaint: SOB Time Seen by Provider: 04/25/23 05:41 Source: patient Mode of arrival: EMS Limitations: no limitations History of Present Illness HPI narrative: Patient is a 63-year-old male. Has a history of COPD. Was seen here couple days ago for COPD exacerbation. Was subsequently discharged home after multiple nebulizer treatments and steroids. He is on oxygen at home. He states that it varies as to how much he uses but at baseline it is normally 4 L. he states last night he was not feeling very well. He states he had ?nightmares? overnight and when he woke up this morning he was significantly short of breath. Tried to do some nebulizers at home but was unsuccessful. EMS was called. He received 1 DuoNeb and 1 albuterol prior to arrival. Patient states that it does seem to help the discomfort slightly. He was also complaining of some chest discomfort. No fevers. Related Data Home Medications Medication Instructions Recorded Confirmed apixaban 2.5 mg tablet (Eliquis) 2.5 mg PO BID 04/25/23 04/25/23 aspirin 81 mg tablet,delayed 81 mg PO DAILY 04/25/23 04/25/23 release fluticasone propionate 220 2 puff inhalation BID 04/25/23 04/25/23 mcg/actuation HFA aerosol inhaler furosemide 20 mg tablet 20 mg PO BID 04/25/23 04/25/23 spironolactone 25 mg tablet 12.5 mg PO DAILY 04/25/23 04/25/23 tamsulosin 0.4 mg capsule 0.4 mg PO BEDTIME 04/25/23 04/25/23 Previous Rx's Medication Instructions Recorded albuterol sulfate 90 mcg/actuation 2 inhalation inhalation QID PRN 09/21/21 aerosol inhaler (Ventolin HFA) shortness of breath or wheezing #6.7 grams albuterol sulfate 2.5 mg/3 mL 2.5 mg (3 mL) inhalation Q4H PRN 04/19/23 (0.083 %) solution for nebulization shortness of breath or wheezing #180 mL prednisone 10 mg tablets in a dose See Rx Instructions PO .COMPLEX 04/19/23 pack #21 ea tramadol 50 mg tablet 50 mg PO Q8H PRN pain #14 tabs 04/25/23 levofloxacin 750 mg tablet 750 mg PO 0700 3 days #3 tabs 04/27/23 lisinopril 2.5 mg tablet 2.5 mg PO DAILY 90 days #90 tabs 04/27/23 metformin 500 mg tablet 500 mg PO BIDWMEAL #180 tabs 04/27/23 prednisone 20 mg tablet 40 mg PO DAILY 3 days #6 tabs 04/27/23 Allergies Allergy/AdvReac Type Severity Reaction Status Date / Time shellfish derived Allergy Verified 04/19/23 14:48 Review of Systems <Petr Aguilar DO - Last Filed: 04/28/23 07:04> Review of Systems ROS Unobtainable: All systems reviewed & are unremarkable except as noted in HPI and below Patient History <Petr Aguilar DO - Last Filed: 04/28/23 07:04> Social History household members: none Smoking Status: Current every day smoker alcohol intake: current Smoking Status: Current every day smoker alcohol intake frequency: holidays/special occasions only Substance Use Type: does not use Exam <DO Denton Tabares Last Filed: 04/28/23 07:04> Initial Vital Signs Initial Vital Signs: Vital Signs Temperature 98.6 F 04/25/23 05:40 Pulse Rate 122 H 04/25/23 05:40 Respiratory Rate 38 H 04/25/23 05:40 Blood Pressure 181/101 H 04/25/23 05:40 Pulse Oximetry 92 04/25/23 05:40 Oxygen Delivery Method Non -Rebreather 04/25/23 05:40 Oxygen Flow Rate 6 04/25/23 05:40 Const General: cooperative and acute distress HENMT Head: normal to inspection Mouth: other (Dry mucous membranes) Resp Effort & Inspection: labored, respiratory distress, retractions and tachypneic Auscultation: rhonchi Cardio Rate: tachycardic Rhythm: regular rhythm GI Inspection: normal to inspection Skin General: no rashes or lesions noted Neuro General: patient alert, patient awake and moves all extremities Extrem General: capillary refill normal <Fam Sosa DO - Last Filed: 04/26/23 09:56> Initial Vital Signs Initial Vital Signs: Vital Signs Temperature 98.6 F 04/25/23 05:40 Pulse Rate 122 H 04/25/23 05:40 Respiratory Rate 38 H 04/25/23 05:40 Blood Pressure 181/101 H 04/25/23 05:40 Pulse Oximetry 92 04/25/23 05:40 Oxygen Delivery Method Non -Rebreather 04/25/23 05:40 Oxygen Flow Rate 6 04/25/23 05:40 Course <Petr Aguilar, - Last Filed: 04/28/23 07:04> Orders Ordered: Discontinued Medications Acetaminophen (Acetaminophen 325 Mg Tablet) 650 mg PO Q6H PRN PRN Reason: Fever/Mild Pain (1-3) Albuterol (Albuterol 2.5 Mg/3 Ml Neb (Adult)) 2.5 mg INH NOW ONE Stop: 04/25/23 06:30 Last Admin: 04/25/23 06:33 Dose: 2.5 mg Documented By: KIMBER Albuterol (Albuterol 2.5 Mg/3 Ml Neb (Adult)) 2.5 mg INH [id number] PRN PRN Reason: COPD Albuterol/Ipratropium (Albuterol/Ipratropium 3 Ml Ampul) 3 ml INH NOW ONE Stop: 04/25/23 05:43 Last Admin: 04/25/23 05:57 Dose: 3 ml Documented By: BARRETT Albuterol/Ipratropium (Albuterol/Ipratropium 3 Ml Ampul) 3 ml INH NOW ONE Stop: 04/25/23 05:43 Last Admin: 04/25/23 05:57 Dose: 3 ml Documented By: BARRETT Albuterol/Ipratropium (Albuterol/Ipratropium 3 Ml Ampul) 3 ml INH Q6HRWA [facility] Last Admin: 04/27/23 15:41 Dose: 3 ml Documented By: Admin: 04/27/23 09:26 Dose: 3 ml Documented By: Admin: 04/27/23 08:49 Dose: Not Given Documented By: Admin: 04/26/23 16:05 Dose: 3 ml Documented By: Admin: 04/26/23 10:14 Dose: 3 ml Documented By: Admin: 04/25/23 21:16 Dose: 3 ml Documented By: Admin: 04/25/23 14:52 Dose: 3 ml Documented By: GURVINDER Apixaban (Apixaban 5 Mg Tablet) 2.5 mg PO BID [facility] Last Admin: 04/27/23 08:56 Dose: 2.5 mg Documented By: Admin: 04/26/23 20:05 Dose: 2.5 mg Documented By: Admin: 04/26/23 08:09 Dose: 2.5 mg Documented By: Admin: 04/25/23 20:57 Dose: 2.5 mg Documented By: ALESSIA Aspirin (Aspirin Ec 81 Mg Tablet) 81 mg PO DAILY [facility] Last Admin: 04/27/23 08:57 Dose: 81 mg Documented By: Admin: 04/26/23 08:08 Dose: 81 mg Documented By: SOCORRO Carvedilol (Carvedilol 12.5 Mg Tablet) 12.5 mg PO BID [facility] Last Admin: 04/27/23 08:57 Dose: 12.5 mg Documented By: Admin: 04/26/23 20:05 Dose: 12.5 mg Documented By: Admin: 04/26/23 08:08 Dose: 12.5 mg Documented By: Admin: 04/25/23 20:57 Dose: 12.5 mg Documented By: ALESSIA Dextrose (Dextrose 50 % In Water 25 Gm/50 Ml Syringe) 25 gm IV PRN PRN PRN Reason: Hypoglycemia Diclofenac Sodium (Diclofenac 1% Gel 100 Gm) 1 applic TOP QID [facility] Last Admin: 04/27/23 12:36 Dose: Not Given Documented By: Admin: 04/27/23 08:58 Dose: Not Given Documented By: Admin: 04/27/23 04:15 Dose: Not Given Documented By: Furosemide (Furosemide 40 Mg/4 Ml Vial) 40 mg IV NOW ONE Stop: 04/25/23 06:20 Last Admin: 04/25/23 06:33 Dose: 40 mg Documented By: KIMBER Furosemide (Furosemide 40 Mg Tablet) 40 mg PO 0800,1700 [facility] Last Admin: 04/26/23 08:08 Dose: 40 mg Documented By: Admin: 04/25/23 17:28 Dose: 40 mg Documented By: KELSI Furosemide (Furosemide 40 Mg/4 Ml Vial) 40 mg IV 1600,0800 [facility] Last Admin: 04/26/23 15:38 Dose: 40 mg Documented By: Admin: 04/26/23 09:37 Dose: Not Given Documented By: SOCORRO Sodium Chloride (Normal Saline 0.9%) 1,000 mls @ 100 mls/hr IV CONT [facility] Last Infusion: 04/25/23 10:26 Dose: 0 mls/hr Documented By: Admin: 04/25/23 06:45 Dose: 100 mls/hr Documented By: KIMBER Levofloxacin (Levaquin) 750 mg in 150 mls @ 100 mls/hr IV NOW ONE Stop: 04/25/23 07:30 Last Infusion: 04/25/23 08:14 Dose: 0 mls/hr Documented By: Admin: 04/25/23 06:30 Dose: 100 mls/hr Documented By: KIMBER Magnesium Sulfate (Magnesium Sulfate) 2 gm in 50 mls @ 25 mls/hr IV NOW ONE Stop: 04/27/23 08:05 Last Admin: 04/27/23 06:51 Dose: 25 mls/hr Documented By: Co-signed By: CAMILLE Insulin Human Lispro (Insulin Lispro 100 Unit/Ml 3ml Vial) 0 unit SUBCUT ACHS [facility]; Protocol Last Admin: 04/27/23 12:28 Dose: Not Given Documented By: Admin: 04/27/23 08:49 Dose: Not Given Documented By: Admin: 04/26/23 20:09 Dose: Not Given Documented By: Admin: 04/26/23 17:06 Dose: 1 unit Documented By: SOCORRO Co-signed By: DON Admin: 04/26/23 11:43 Dose: Not Given Documented By: SOCORRO Levofloxacin (Levofloxacin 250 Mg Tablet) 750 mg PO 0700 [facility] Stop: 04/29/23 07:01 Last Admin: 04/27/23 06:51 Dose: 750 mg Documented By: Admin: 04/26/23 06:30 Dose: 750 mg Documented By: ALESSIA Lisinopril (Lisinopril 5 Mg Tablet) 2.5 mg PO DAILY [facility] Last Admin: 04/27/23 08:57 Dose: 2.5 mg Documented By: Admin: 04/26/23 09:41 Dose: 2.5 mg Documented By: SOCORRO Magnesium Hydroxide (Magnesium Hydroxide 30 Ml Udc) 30 ml PO DAILY PRN PRN Reason: Constipation Methylprednisolone (Methylprednisolone 125 Mg/2 Ml Vial) 125 mg IV NOW ONE Stop: 04/25/23 05:43 Last Admin: 04/25/23 06:22 Dose: 125 mg Documented By: KIMBER Nicotine (Nicotine 21 Mg Patch) 21 mg TOP DAILY [facility] Last Admin: 04/27/23 08:58 Dose: Not Given Documented By: Admin: 04/26/23 09:37 Dose: Not Given Documented By: Admin: 04/25/23 12:19 Dose: Not Given Documented By: HCW Prednisone (Prednisone 20 Mg Tablet) 40 mg PO DAILY [facility] Stop: 04/29/23 09:01 Last Admin: 04/27/23 08:58 Dose: 40 mg Documented By: Admin: 04/26/23 08:08 Dose: 40 mg Documented By: SOCORRO Spironolactone (Spironolactone 25 Mg Tablet) 12.5 mg PO DAILY [facility] Last Admin: 04/27/23 08:57 Dose: 12.5 mg Documented By: Admin: 04/26/23 08:08 Dose: 12.5 mg Documented By: SOCORRO Tamsulosin HCl (Tamsulosin 0.4 Mg Capsule) 0.4 mg PO BEDTIME [facility] Last Admin: 04/26/23 20:06 Dose: 0.4 mg Documented By: Admin: 04/25/23 20:57 Dose: 0.4 mg Documented By: ALESSIA Tramadol HCl (Tramadol 50 Mg Tablet) 50 mg PO NOW ONE Stop: 04/25/23 06:06 Last Admin: 04/25/23 06:16 Dose: Not Given Documented By: KIMBER Tramadol HCl (Tramadol 50 Mg Prepack) 1 bottle MISC SEEINSTR ONE Stop: 04/25/23 06:06 Last Admin: 04/25/23 06:16 Dose: Not Given Documented By: KIMBER Tramadol HCl (Tramadol 50 Mg Tablet) 50 mg PO QID PRN PRN Reason: Pain, Moderate (4-6) Last Admin: 04/26/23 22:46 Dose: 50 mg Documented By: Vital Signs Vital signs: Vital Signs - 8 hr 04/25/23 05:40 04/25/23 06:12 04/25/23 06:04 Temperature 98.6 F Pulse Rate 122 H 122 H Respiratory Rate 38 H 30 H 40 H Blood Pressure 181/101 H Pulse Oximetry 92 98 89 L Oxygen Delivery Method Non -Rebreather Aerosol Mask Aerosol Mask Oxygen Flow Rate 6 5 7 04/25/23 06:05 04/25/23 06:05 04/25/23 06:15 Temperature Pulse Rate 122 H 119 H Respiratory Rate 40 H 33 H Blood Pressure 147/102 H Pulse Oximetry 97 98 Oxygen Delivery Method Aerosol Mask Aerosol Mask Oxygen Flow Rate 7 5 04/25/23 06:15 04/25/23 06:30 04/25/23 06:30 Temperature Pulse Rate 118 H Respiratory Rate 33 H Blood Pressure 148/98 H 142/100 H Pulse Oximetry 88 L Oxygen Delivery Method Aerosol Mask Oxygen Flow Rate 5 04/25/23 06:47 04/25/23 06:47 04/25/23 07:00 Temperature Pulse Rate 118 H Respiratory Rate 37 H Blood Pressure 143/103 H 161/102 H Pulse Oximetry 95 Oxygen Delivery Method Aerosol Mask Oxygen Flow Rate 5 04/25/23 07:00 04/25/23 07:15 04/25/23 07:15 Temperature Pulse Rate 118 H 116 H Respiratory Rate 33 H 37 H Blood Pressure 166/111 H Pulse Oximetry 97 97 Oxygen Delivery Method Non -Rebreather Oxygen Flow Rate 4 04/25/23 07:30 04/25/23 07:31 04/25/23 07:31 Temperature Pulse Rate 126 H 116 H Respiratory Rate 35 H 33 H Blood Pressure 171/78 H Pulse Oximetry 97 97 Oxygen Delivery Method Simple Mask Oxygen Flow Rate 4 04/25/23 08:00 04/25/23 08:00 04/25/23 08:15 Temperature Pulse Rate 113 H Respiratory Rate 32 H Blood Pressure 146/110 H 144/107 H Pulse Oximetry 99 Oxygen Delivery Method Oxygen Flow Rate 04/25/23 08:15 04/25/23 08:30 04/25/23 08:30 Temperature Pulse Rate 111 H 110 H Respiratory Rate 28 H Blood Pressure 160/106 H Pulse Oximetry Oxygen Delivery Method Oxygen Flow Rate 04/25/23 08:45 04/25/23 08:45 04/25/23 09:00 Temperature Pulse Rate 108 H Respiratory Rate 24 Blood Pressure 155/97 H 142/87 H Pulse Oximetry 97 Oxygen Delivery Method Simple Mask Oxygen Flow Rate 4 04/25/23 09:00 04/25/23 09:16 04/25/23 09:16 Temperature Pulse Rate 108 H 109 H Respiratory Rate 26 H 29 H Blood Pressure 143/98 H Pulse Oximetry 100 98 Oxygen Delivery Method Oxygen Flow Rate 04/25/23 09:30 04/25/23 09:30 04/25/23 09:45 Temperature Pulse Rate 109 H 109 H Respiratory Rate 28 H 25 H Blood Pressure 148/98 H Pulse Oximetry 99 99 Oxygen Delivery Method Oxygen Flow Rate 04/25/23 09:45 04/25/23 10:00 04/25/23 10:00 Temperature Pulse Rate 109 H Respiratory Rate 30 H Blood Pressure 147/98 H 154/107 H Pulse Oximetry 100 Oxygen Delivery Method Simple Mask Oxygen Flow Rate 4 <Fam Sosa, - Last Filed: 04/26/23 09:56> Orders Ordered: Discontinued Medications Acetaminophen (Acetaminophen 325 Mg Tablet) 650 mg PO Q6H PRN PRN Reason: Fever/Mild Pain (1-3) Albuterol (Albuterol 2.5 Mg/3 Ml Neb (Adult)) 2.5 mg INH NOW ONE Stop: 04/25/23 06:30 Last Admin: 04/25/23 06:33 Dose: 2.5 mg Documented By: KIMBER Albuterol (Albuterol 2.5 Mg/3 Ml Neb (Adult)) 2.5 mg INH [id number] PRN PRN Reason: COPD Albuterol/Ipratropium (Albuterol/Ipratropium 3 Ml Ampul) 3 ml INH NOW ONE Stop: 04/25/23 05:43 Last Admin: 04/25/23 05:57 Dose: 3 ml Documented By: BARRETT Albuterol/Ipratropium (Albuterol/Ipratropium 3 Ml Ampul) 3 ml INH NOW ONE Stop: 04/25/23 05:43 Last Admin: 04/25/23 05:57 Dose: 3 ml Documented By: BARRETT Albuterol/Ipratropium (Albuterol/Ipratropium 3 Ml Ampul) 3 ml INH Q6HRWA [facility] Last Admin: 04/27/23 15:41 Dose: 3 ml Documented By: Admin: 04/27/23 09:26 Dose: 3 ml Documented By: Admin: 04/27/23 08:49 Dose: Not Given Documented By: Admin: 04/26/23 16:05 Dose: 3 ml Documented By: Admin: 04/26/23 10:14 Dose: 3 ml Documented By: Admin: 04/25/23 21:16 Dose: 3 ml Documented By: Admin: 04/25/23 14:52 Dose: 3 ml Documented By: GURVINDER Apixaban (Apixaban 5 Mg Tablet) 2.5 mg PO BID [facility] Last Admin: 04/27/23 08:56 Dose: 2.5 mg Documented By: Admin: 04/26/23 20:05 Dose: 2.5 mg Documented By: Admin: 04/26/23 08:09 Dose: 2.5 mg Documented By: Admin: 04/25/23 20:57 Dose: 2.5 mg Documented By: ALESSIA Aspirin (Aspirin Ec 81 Mg Tablet) 81 mg PO DAILY [facility] Last Admin: 04/27/23 08:57 Dose: 81 mg Documented By: Admin: 04/26/23 08:08 Dose: 81 mg Documented By: SOCORRO Carvedilol (Carvedilol 12.5 Mg Tablet) 12.5 mg PO BID [facility] Last Admin: 04/27/23 08:57 Dose: 12.5 mg Documented By: Admin: 04/26/23 20:05 Dose: 12.5 mg Documented By: Admin: 04/26/23 08:08 Dose: 12.5 mg Documented By: Admin: 04/25/23 20:57 Dose: 12.5 mg Documented By: ALESSIA Dextrose (Dextrose 50 % In Water 25 Gm/50 Ml Syringe) 25 gm IV PRN PRN PRN Reason: Hypoglycemia Diclofenac Sodium (Diclofenac 1% Gel 100 Gm) 1 applic TOP QID [facility] Last Admin: 04/27/23 12:36 Dose: Not Given Documented By: Admin: 04/27/23 08:58 Dose: Not Given Documented By: Admin: 04/27/23 04:15 Dose: Not Given Documented By: Furosemide (Furosemide 40 Mg/4 Ml Vial) 40 mg IV NOW ONE Stop: 04/25/23 06:20 Last Admin: 04/25/23 06:33 Dose: 40 mg Documented By: KIMBER Furosemide (Furosemide 40 Mg Tablet) 40 mg PO 0800,1700 [facility] Last Admin: 04/26/23 08:08 Dose: 40 mg Documented By: Admin: 04/25/23 17:28 Dose: 40 mg Documented By: JONASW Furosemide (Furosemide 40 Mg/4 Ml Vial) 40 mg IV 1600,0800 [facility] Last Admin: 04/26/23 15:38 Dose: 40 mg Documented By: Admin: 04/26/23 09:37 Dose: Not Given Documented By: SOCORRO Sodium Chloride (Normal Saline 0.9%) 1,000 mls @ 100 mls/hr IV CONT [facility] Last Infusion: 04/25/23 10:26 Dose: 0 mls/hr Documented By: Admin: 04/25/23 06:45 Dose: 100 mls/hr Documented By: KIMBER Levofloxacin (Levaquin) 750 mg in 150 mls @ 100 mls/hr IV NOW ONE Stop: 04/25/23 07:30 Last Infusion: 04/25/23 08:14 Dose: 0 mls/hr Documented By: Admin: 04/25/23 06:30 Dose: 100 mls/hr Documented By: KIMBER Magnesium Sulfate (Magnesium Sulfate) 2 gm in 50 mls @ 25 mls/hr IV NOW ONE Stop: 04/27/23 08:05 Last Admin: 04/27/23 06:51 Dose: 25 mls/hr Documented By: Co-signed By: CAMILLE Insulin Human Lispro (Insulin Lispro 100 Unit/Ml 3ml Vial) 0 unit SUBCUT [facility]; Protocol Last Admin: 04/27/23 12:28 Dose: Not Given Documented By: Admin: 04/27/23 08:49 Dose: Not Given Documented By: Admin: 04/26/23 20:09 Dose: Not Given Documented By: Admin: 04/26/23 17:06 Dose: 1 unit Documented By: SOCORRO Co-signed By: DON Admin: 04/26/23 11:43 Dose: Not Given Documented By: SOCORRO Levofloxacin (Levofloxacin 250 Mg Tablet) 750 mg PO 0700 [facility] Stop: 04/29/23 07:01 Last Admin: 04/27/23 06:51 Dose: 750 mg Documented By: Admin: 04/26/23 06:30 Dose: 750 mg Documented By: ALESSIA Lisinopril (Lisinopril 5 Mg Tablet) 2.5 mg PO DAILY [facility] Last Admin: 04/27/23 08:57 Dose: 2.5 mg Documented By: Admin: 04/26/23 09:41 Dose: 2.5 mg Documented By: SOCORRO Magnesium Hydroxide (Magnesium Hydroxide 30 Ml Udc) 30 ml PO DAILY PRN PRN Reason: Constipation Methylprednisolone (Methylprednisolone 125 Mg/2 Ml Vial) 125 mg IV NOW ONE Stop: 04/25/23 05:43 Last Admin: 04/25/23 06:22 Dose: 125 mg Documented By: KIMBER Nicotine (Nicotine 21 Mg Patch) 21 mg TOP DAILY [facility] Last Admin: 04/27/23 08:58 Dose: Not Given Documented By: Admin: 04/26/23 09:37 Dose: Not Given Documented By: Admin: 04/25/23 12:19 Dose: Not Given Documented By: HCW Prednisone (Prednisone 20 Mg Tablet) 40 mg PO DAILY [facility] Stop: 04/29/23 09:01 Last Admin: 04/27/23 08:58 Dose: 40 mg Documented By: Admin: 04/26/23 08:08 Dose: 40 mg Documented By: SOCORRO Spironolactone (Spironolactone 25 Mg Tablet) 12.5 mg PO DAILY [facility] Last Admin: 04/27/23 08:57 Dose: 12.5 mg Documented By: Admin: 04/26/23 08:08 Dose: 12.5 mg Documented By: SOCORRO Tamsulosin HCl (Tamsulosin 0.4 Mg Capsule) 0.4 mg PO BEDTIME [facility] Last Admin: 04/26/23 20:06 Dose: 0.4 mg Documented By: Admin: 04/25/23 20:57 Dose: 0.4 mg Documented By: ALESSIA Tramadol HCl (Tramadol 50 Mg Tablet) 50 mg PO NOW ONE Stop: 04/25/23 06:06 Last Admin: 04/25/23 06:16 Dose: Not Given Documented By: KIMBER Tramadol HCl (Tramadol 50 Mg Prepack) 1 bottle MISC SEEINSTR ONE Stop: 04/25/23 06:06 Last Admin: 04/25/23 06:16 Dose: Not Given Documented By: KIMBER Tramadol HCl (Tramadol 50 Mg Tablet) 50 mg PO QID PRN PRN Reason: Pain, Moderate (4-6) Last Admin: 04/26/23 22:46 Dose: 50 mg Documented By: Vital Signs Vital signs: Vital Signs - 8 hr 04/25/23 05:40 04/25/23 06:12 04/25/23 06:04 Temperature 98.6 F Pulse Rate 122 H 122 H Respiratory Rate 38 H 30 H 40 H Blood Pressure 181/101 H Pulse Oximetry 92 98 89 L Oxygen Delivery Method Non -Rebreather Aerosol Mask Aerosol Mask Oxygen Flow Rate 6 5 7 04/25/23 06:05 04/25/23 06:05 04/25/23 06:15 Temperature Pulse Rate 122 H 119 H Respiratory Rate 40 H 33 H Blood Pressure 147/102 H Pulse Oximetry 97 98 Oxygen Delivery Method Aerosol Mask Aerosol Mask Oxygen Flow Rate 7 5 04/25/23 06:15 04/25/23 06:30 04/25/23 06:30 Temperature Pulse Rate 118 H Respiratory Rate 33 H Blood Pressure 148/98 H 142/100 H Pulse Oximetry 88 L Oxygen Delivery Method Aerosol Mask Oxygen Flow Rate 5 04/25/23 06:47 04/25/23 06:47 04/25/23 07:00 Temperature Pulse Rate 118 H Respiratory Rate 37 H Blood Pressure 143/103 H 161/102 H Pulse Oximetry 95 Oxygen Delivery Method Aerosol Mask Oxygen Flow Rate 5 04/25/23 07:00 04/25/23 07:15 04/25/23 07:15 Temperature Pulse Rate 118 H 116 H Respiratory Rate 33 H 37 H Blood Pressure 166/111 H Pulse Oximetry 97 97 Oxygen Delivery Method Non -Rebreather Oxygen Flow Rate 4 04/25/23 07:30 04/25/23 07:31 04/25/23 07:31 Temperature Pulse Rate 126 H 116 H Respiratory Rate 35 H 33 H Blood Pressure 171/78 H Pulse Oximetry 97 97 Oxygen Delivery Method Simple Mask Oxygen Flow Rate 4 04/25/23 08:00 04/25/23 08:00 04/25/23 08:15 Temperature Pulse Rate 113 H Respiratory Rate 32 H Blood Pressure 146/110 H 144/107 H Pulse Oximetry 99 Oxygen Delivery Method Oxygen Flow Rate 04/25/23 08:15 04/25/23 08:30 04/25/23 08:30 Temperature Pulse Rate 111 H 110 H Respiratory Rate 28 H Blood Pressure 160/106 H Pulse Oximetry Oxygen Delivery Method Oxygen Flow Rate 04/25/23 08:45 04/25/23 08:45 04/25/23 09:00 Temperature Pulse Rate 108 H Respiratory Rate 24 Blood Pressure 155/97 H 142/87 H Pulse Oximetry 97 Oxygen Delivery Method Simple Mask Oxygen Flow Rate 4 04/25/23 09:00 04/25/23 09:16 04/25/23 09:16 Temperature Pulse Rate 108 H 109 H Respiratory Rate 26 H 29 H Blood Pressure 143/98 H Pulse Oximetry 100 98 Oxygen Delivery Method Oxygen Flow Rate 04/25/23 09:30 04/25/23 09:30 04/25/23 09:45 Temperature Pulse Rate 109 H 109 H Respiratory Rate 28 H 25 H Blood Pressure 148/98 H Pulse Oximetry 99 99 Oxygen Delivery Method Oxygen Flow Rate 04/25/23 09:45 04/25/23 10:00 04/25/23 10:00 Temperature Pulse Rate 109 H Respiratory Rate 30 H Blood Pressure 147/98 H 154/107 H Pulse Oximetry 100 Oxygen Delivery Method Simple Mask Oxygen Flow Rate 4 Medical Decision Making <Petr Aguilar DO - Last Filed: 04/28/23 07:04> Medical Records Medical records reviewed: Yes I reviewed the patient's medical records. Lab Data Lab results reviewed: Yes I reviewed the patient's lab results. 04/27/23 06:00 04/27/23 06:00 Labs: Lab Results 04/25/23 04/25/23 04/25/23 Range/Units 05:25 05:35 05:35 WBC 13.9 H (4.5-11.0) X10^3/uL RBC 5.12 (4.5-5.9) X10^6/uL Hgb 13.5 (13.5-17.5) g/dL Hct 42.8 (41-53) % MCV 83.6 (80-100) fL MCH 26.3 (26-34) PG MCHC 31.5 (30-36) % RDW 19.2 H (11.6-14.8) % Plt Count 182 (150-400) X10^3/uL Neut % (Auto) 82.8 H (50-75) % Lymph % (Auto) 6.7 L (25-40) % Hopkins % (Auto) 8.8 (3-14) % Eos % (Auto) 0.8 L (2-4) % Baso % (Auto) 0.9 (0-2) % Neut # (Auto) 32409 H (0367-3959) /uL Lymph # (Auto) 900 L (2233-2097) /uL Hopkins # (Auto) 1200 H (0-900) /uL Eos # (Auto) 100 (0-450) /uL Baso # (Auto) 100 (0-100) /uL ABG pH (7.35-7.45) ABG pCO2 (35-45) mmHg ABG pO2 (80-100) mmHg ABG HCO3 (23-27) mmol/L ABG Total CO2 (23-27) mmol/L ABG O2 Saturation (95-100) % ABG Base Excess (-2-3) mmol/L FiO2 Sodium 134 L (137-145) mmol/L Potassium 5.3 H D (3.4-5.1) mmol/L Chloride 98 (98-107) mmol/L Carbon Dioxide 30 (22-32) mmol/L BUN 30 H (9-20) mg/dL Creatinine 1.26 H (0.66-1.25) mg/dL Estimated GFR > 60 (>60) mL/min BUN/Creatinine Ratio 23.8 H (6-22) Glucose 178 H (80-110) mg/dL Hgb A1c (Ref Lab) 6.8 H (4.8-5.6) % Calcium 8.8 (8.4-10.2) mg/dL Magnesium 2.1 (1.6-2.3) mg/dL Total Bilirubin 3.5 H (0.2-1.3) mg/dL AST 39 (17-59) IU/L ALT 50 H (<50) IU/L Alkaline Phosphatase 123 (38-126) U/L Total Creatine Kinase 110 (55-170) U/L CK-MB (CK-2) TNP CK-MB (CK-2) Rel Index TNP Troponin I 0.081 H (0.01-0.034) ng/mL NT-Pro-B Natriuret Pep 63776 H (<125) pg/mL Total Protein 7.4 (6.3-8.2) g/dL Albumin 3.9 (3.5-5.0) g/dL Globulin 3.5 (1.7-4.1) g/dL Albumin/Globulin Ratio 1.1 (1.0-2.8) Lipase 54 (23-300) U/L Procalcitonin (<0.5) ng/mL Chlamy pneumoniae PCR (Not Detect) Adenovirus (PCR) (Not Detect) B. pertussis DNA (PCR) (Not Detecte) B.parapertussis DNA PCR (Not Detecte) Coronavirus OC43 (PCR) (Not Detect) Coronavirus HKU1 (PCR) (Not Detect) Coronavirus 229E (PCR) (Not Detect) SARS-CoV-2 (PCR) (Not Detecte) Coronavirus NL63 (PCR) (Not Detect) Human Metapneumovir PCR (Not Detect) Influenza Type A (PCR) (Not Detect) Influenza Type B (PCR) (Not Detect) M. pneumoniae (PCR) (Not Detect) Parainfluenza 1 (PCR) (Not Detect) Parainfluenza 2 (PCR) (Not Detect) Parainfluenza 3 (PCR) (Not Detect) Parainfluenza 4 (PCR) (Not Detect) RSV (PCR) (Not Detect) Entero/Rhino (PCR) (Not Detect) 04/25/23 04/25/23 04/25/23 Range/Units 05:35 05:58 07:50 WBC (4.5-11.0) X10^3/uL RBC (4.5-5.9) X10^6/uL Hgb (13.5-17.5) g/dL Hct (41-53) % MCV (80-100) fL MCH (26-34) PG MCHC (30-36) % RDW (11.6-14.8) % Plt Count (150-400) X10^3/uL Neut % (Auto) (50-75) % Lymph % (Auto) (25-40) % Hopkins % (Auto) (3-14) % Eos % (Auto) (2-4) % Baso % (Auto) (0-2) % Neut # (Auto) (8929-5046) /uL Lymph # (Auto) (3718-6955) /uL Hopkins # (Auto) (0-900) /uL Eos # (Auto) (0-450) /uL Baso # (Auto) (0-100) /uL ABG pH (7.35-7.45) ABG pCO2 (35-45) mmHg ABG pO2 (80-100) mmHg ABG HCO3 (23-27) mmol/L ABG Total CO2 (23-27) mmol/L ABG O2 Saturation (95-100) % ABG Base Excess (-2-3) mmol/L FiO2 Sodium (137-145) mmol/L Potassium (3.4-5.1) mmol/L Chloride (98-107) mmol/L Carbon Dioxide (22-32) mmol/L BUN (9-20) mg/dL Creatinine (0.66-1.25) mg/dL Estimated GFR (>60) mL/min BUN/Creatinine Ratio (6-22) Glucose (80-110) mg/dL Hgb A1c (Ref Lab) (4.8-5.6) % Calcium (8.4-10.2) mg/dL Magnesium (1.6-2.3) mg/dL Total Bilirubin (0.2-1.3) mg/dL AST (17-59) IU/L ALT (<50) IU/L Alkaline Phosphatase (38-126) U/L Total Creatine Kinase 102 (55-170) U/L CK-MB (CK-2) TNP CK-MB (CK-2) Rel Index TNP Troponin I 0.063 H (0.01-0.034) ng/mL NT-Pro-B Natriuret Pep (<125) pg/mL Total Protein (6.3-8.2) g/dL Albumin (3.5-5.0) g/dL Globulin (1.7-4.1) g/dL Albumin/Globulin Ratio (1.0-2.8) Lipase (23-300) U/L Procalcitonin 0.08 (<0.5) ng/mL Chlamy pneumoniae PCR Not detected (Not Detect) Adenovirus (PCR) Not detected (Not Detect) B. pertussis DNA (PCR) Not detected (Not Detecte) B.parapertussis DNA PCR Not detected (Not Detecte) Coronavirus OC43 (PCR) Not detected (Not Detect) Coronavirus HKU1 (PCR) Not detected (Not Detect) Coronavirus 229E (PCR) Not detected (Not Detect) SARS-CoV-2 (PCR) Not detected (Not Detecte) Coronavirus NL63 (PCR) Not detected (Not Detect) Human Metapneumovir PCR Not detected (Not Detect) Influenza Type A (PCR) Not detected (Not Detect) Influenza Type B (PCR) Not detected (Not Detect) M. pneumoniae (PCR) Not detected (Not Detect) Parainfluenza 1 (PCR) Not detected (Not Detect) Parainfluenza 2 (PCR) Not detected (Not Detect) Parainfluenza 3 (PCR) Not detected (Not Detect) Parainfluenza 4 (PCR) Not detected (Not Detect) RSV (PCR) Not detected (Not Detect) Entero/Rhino (PCR) Not detected (Not Detect) 04/25/23 Range/Units 08:54 WBC (4.5-11.0) X10^3/uL RBC (4.5-5.9) X10^6/uL Hgb (13.5-17.5) g/dL Hct (41-53) % MCV (80-100) fL MCH (26-34) PG MCHC (30-36) % RDW (11.6-14.8) % Plt Count (150-400) X10^3/uL Neut % (Auto) (50-75) % Lymph % (Auto) (25-40) % Hopkins % (Auto) (3-14) % Eos % (Auto) (2-4) % Baso % (Auto) (0-2) % Neut # (Auto) (2689-9741) /uL Lymph # (Auto) (4085-7948) /uL Hopkins # (Auto) (0-900) /uL Eos # (Auto) (0-450) /uL Baso # (Auto) (0-100) /uL ABG pH 7.44 (7.35-7.45) ABG pCO2 50.1 H (35-45) mmHg ABG pO2 82 (80-100) mmHg ABG HCO3 34 H (23-27) mmol/L ABG Total CO2 36 H (23-27) mmol/L ABG O2 Saturation 96 (95-100) % ABG Base Excess 10.0 H (-2-3) mmol/L FiO2 36 Sodium (137-145) mmol/L Potassium (3.4-5.1) mmol/L Chloride (98-107) mmol/L Carbon Dioxide (22-32) mmol/L BUN (9-20) mg/dL Creatinine (0.66-1.25) mg/dL Estimated GFR (>60) mL/min BUN/Creatinine Ratio (6-22) Glucose (80-110) mg/dL Hgb A1c (Ref Lab) (4.8-5.6) % Calcium (8.4-10.2) mg/dL Magnesium (1.6-2.3) mg/dL Total Bilirubin (0.2-1.3) mg/dL AST (17-59) IU/L ALT (<50) IU/L Alkaline Phosphatase (38-126) U/L Total Creatine Kinase (55-170) U/L CK-MB (CK-2) CK-MB (CK-2) Rel Index Troponin I (0.01-0.034) ng/mL NT-Pro-B Natriuret Pep (<125) pg/mL Total Protein (6.3-8.2) g/dL Albumin (3.5-5.0) g/dL Globulin (1.7-4.1) g/dL Albumin/Globulin Ratio (1.0-2.8) Lipase (23-300) U/L Procalcitonin (<0.5) ng/mL Chlamy pneumoniae PCR (Not Detect) Adenovirus (PCR) (Not Detect) B. pertussis DNA (PCR) (Not Detecte) B.parapertussis DNA PCR (Not Detecte) Coronavirus OC43 (PCR) (Not Detect) Coronavirus HKU1 (PCR) (Not Detect) Coronavirus 229E (PCR) (Not Detect) SARS-CoV-2 (PCR) (Not Detecte) Coronavirus NL63 (PCR) (Not Detect) Human Metapneumovir PCR (Not Detect) Influenza Type A (PCR) (Not Detect) Influenza Type B (PCR) (Not Detect) M. pneumoniae (PCR) (Not Detect) Parainfluenza 1 (PCR) (Not Detect) Parainfluenza 2 (PCR) (Not Detect) Parainfluenza 3 (PCR) (Not Detect) Parainfluenza 4 (PCR) (Not Detect) RSV (PCR) (Not Detect) Entero/Rhino (PCR) (Not Detect) Imaging Data Chest x-ray: Radiologist's Impression: Cardiomegaly with hazy interstitial airspace opacities bilaterally which could indicate edema or pneumonia ECG Data Attestation: I personally reviewed and interpreted this ECG as follows: Interpretation: Sinus tachycardia Ventricular rate 123 Left axis deviation Normal QRS No ST T wave changes MDM Narrative Medical decision making narrative: Patient arrived in fairly significant respiratory distress despite receiving 2 nebulizer treatments. He states that he does feel like he is improving somewhat. He received another 2 DuoNebs here in the ER any stated that he was feeling much better but not back to baseline. Another albuterol neb was ordered and he states that he does feel like he is improving and certainly not worsening.. Patient does an indeterminate troponin. That is slightly higher from prior troponins. He is tachycardic on his EKG. He is on anticoagulation. I have a low suspicion for pulmonary embolism. He does have an elevated be in pea. He was given Lasix and did diurese some. He was given steroids. Was also started on antibiotics. Blood cultures were obtained. Care turned over to day provider to follow-up on the rest of his workup and for disposition. <Fam Sosa DO - Last Filed: 04/26/23 09:56> Lab Data Labs: Lab Results 04/25/23 04/25/23 04/25/23 Range/Units 05:25 05:35 05:35 WBC 13.9 H (4.5-11.0) X10^3/uL RBC 5.12 (4.5-5.9) X10^6/uL Hgb 13.5 (13.5-17.5) g/dL Hct 42.8 (41-53) % MCV 83.6 (80-100) fL MCH 26.3 (26-34) PG MCHC 31.5 (30-36) % RDW 19.2 H (11.6-14.8) % Plt Count 182 (150-400) X10^3/uL Neut % (Auto) 82.8 H (50-75) % Lymph % (Auto) 6.7 L (25-40) % Hopkins % (Auto) 8.8 (3-14) % Eos % (Auto) 0.8 L (2-4) % Baso % (Auto) 0.9 (0-2) % Neut # (Auto) 99811 H (5732-1148) /uL Lymph # (Auto) 900 L (6863-0686) /uL Hopkins # (Auto) 1200 H (0-900) /uL Eos # (Auto) 100 (0-450) /uL Baso # (Auto) 100 (0-100) /uL ABG pH (7.35-7.45) ABG pCO2 (35-45) mmHg ABG pO2 (80-100) mmHg ABG HCO3 (23-27) mmol/L ABG Total CO2 (23-27) mmol/L ABG O2 Saturation (95-100) % ABG Base Excess (-2-3) mmol/L FiO2 Sodium 134 L (137-145) mmol/L Potassium 5.3 H D (3.4-5.1) mmol/L Chloride 98 (98-107) mmol/L Carbon Dioxide 30 (22-32) mmol/L BUN 30 H (9-20) mg/dL Creatinine 1.26 H (0.66-1.25) mg/dL Estimated GFR > 60 (>60) mL/min BUN/Creatinine Ratio 23.8 H (6-22) Glucose 178 H (80-110) mg/dL Hgb A1c (Ref Lab) 6.8 H (4.8-5.6) % Calcium 8.8 (8.4-10.2) mg/dL Magnesium 2.1 (1.6-2.3) mg/dL Total Bilirubin 3.5 H (0.2-1.3) mg/dL AST 39 (17-59) IU/L ALT 50 H (<50) IU/L Alkaline Phosphatase 123 (38-126) U/L Total Creatine Kinase 110 (55-170) U/L CK-MB (CK-2) TNP CK-MB (CK-2) Rel Index TNP Troponin I 0.081 H (0.01-0.034) ng/mL NT-Pro-B Natriuret Pep 90773 H (<125) pg/mL Total Protein 7.4 (6.3-8.2) g/dL Albumin 3.9 (3.5-5.0) g/dL Globulin 3.5 (1.7-4.1) g/dL Albumin/Globulin Ratio 1.1 (1.0-2.8) Lipase 54 (23-300) U/L Procalcitonin (<0.5) ng/mL Chlamy pneumoniae PCR (Not Detect) Adenovirus (PCR) (Not Detect) B. pertussis DNA (PCR) (Not Detecte) B.parapertussis DNA PCR (Not Detecte) Coronavirus OC43 (PCR) (Not Detect) Coronavirus HKU1 (PCR) (Not Detect) Coronavirus 229E (PCR) (Not Detect) SARS-CoV-2 (PCR) (Not Detecte) Coronavirus NL63 (PCR) (Not Detect) Human Metapneumovir PCR (Not Detect) Influenza Type A (PCR) (Not Detect) Influenza Type B (PCR) (Not Detect) M. pneumoniae (PCR) (Not Detect) Parainfluenza 1 (PCR) (Not Detect) Parainfluenza 2 (PCR) (Not Detect) Parainfluenza 3 (PCR) (Not Detect) Parainfluenza 4 (PCR) (Not Detect) RSV (PCR) (Not Detect) Entero/Rhino (PCR) (Not Detect) 04/25/23 04/25/23 04/25/23 Range/Units 05:35 05:58 07:50 WBC (4.5-11.0) X10^3/uL RBC (4.5-5.9) X10^6/uL Hgb (13.5-17.5) g/dL Hct (41-53) % MCV (80-100) fL MCH (26-34) PG MCHC (30-36) % RDW (11.6-14.8) % Plt Count (150-400) X10^3/uL Neut % (Auto) (50-75) % Lymph % (Auto) (25-40) % Hopkins % (Auto) (3-14) % Eos % (Auto) (2-4) % Baso % (Auto) (0-2) % Neut # (Auto) (2747-9093) /uL Lymph # (Auto) (3550-1364) /uL Hopkins # (Auto) (0-900) /uL Eos # (Auto) (0-450) /uL Baso # (Auto) (0-100) /uL ABG pH (7.35-7.45) ABG pCO2 (35-45) mmHg ABG pO2 (80-100) mmHg ABG HCO3 (23-27) mmol/L ABG Total CO2 (23-27) mmol/L ABG O2 Saturation (95-100) % ABG Base Excess (-2-3) mmol/L FiO2 Sodium (137-145) mmol/L Potassium (3.4-5.1) mmol/L Chloride (98-107) mmol/L Carbon Dioxide (22-32) mmol/L BUN (9-20) mg/dL Creatinine (0.66-1.25) mg/dL Estimated GFR (>60) mL/min BUN/Creatinine Ratio (6-22) Glucose (80-110) mg/dL Hgb A1c (Ref Lab) (4.8-5.6) % Calcium (8.4-10.2) mg/dL Magnesium (1.6-2.3) mg/dL Total Bilirubin (0.2-1.3) mg/dL AST (17-59) IU/L ALT (<50) IU/L Alkaline Phosphatase (38-126) U/L Total Creatine Kinase 102 (55-170) U/L CK-MB (CK-2) TNP CK-MB (CK-2) Rel Index TNP Troponin I 0.063 H (0.01-0.034) ng/mL NT-Pro-B Natriuret Pep (<125) pg/mL Total Protein (6.3-8.2) g/dL Albumin (3.5-5.0) g/dL Globulin (1.7-4.1) g/dL Albumin/Globulin Ratio (1.0-2.8) Lipase (23-300) U/L Procalcitonin 0.08 (<0.5) ng/mL Chlamy pneumoniae PCR Not detected (Not Detect) Adenovirus (PCR) Not detected (Not Detect) B. pertussis DNA (PCR) Not detected (Not Detecte) B.parapertussis DNA PCR Not detected (Not Detecte) Coronavirus OC43 (PCR) Not detected (Not Detect) Coronavirus HKU1 (PCR) Not detected (Not Detect) Coronavirus 229E (PCR) Not detected (Not Detect) SARS-CoV-2 (PCR) Not detected (Not Detecte) Coronavirus NL63 (PCR) Not detected (Not Detect) Human Metapneumovir PCR Not detected (Not Detect) Influenza Type A (PCR) Not detected (Not Detect) Influenza Type B (PCR) Not detected (Not Detect) M. pneumoniae (PCR) Not detected (Not Detect) Parainfluenza 1 (PCR) Not detected (Not Detect) Parainfluenza 2 (PCR) Not detected (Not Detect) Parainfluenza 3 (PCR) Not detected (Not Detect) Parainfluenza 4 (PCR) Not detected (Not Detect) RSV (PCR) Not detected (Not Detect) Entero/Rhino (PCR) Not detected (Not Detect) 04/25/23 Range/Units 08:54 WBC (4.5-11.0) X10^3/uL RBC (4.5-5.9) X10^6/uL Hgb (13.5-17.5) g/dL Hct (41-53) % MCV (80-100) fL MCH (26-34) PG MCHC (30-36) % RDW (11.6-14.8) % Plt Count (150-400) X10^3/uL Neut % (Auto) (50-75) % Lymph % (Auto) (25-40) % Hopkins % (Auto) (3-14) % Eos % (Auto) (2-4) % Baso % (Auto) (0-2) % Neut # (Auto) (8002-7273) /uL Lymph # (Auto) (5978-4824) /uL Hopkins # (Auto) (0-900) /uL Eos # (Auto) (0-450) /uL Baso # (Auto) (0-100) /uL ABG pH 7.44 (7.35-7.45) ABG pCO2 50.1 H (35-45) mmHg ABG pO2 82 (80-100) mmHg ABG HCO3 34 H (23-27) mmol/L ABG Total CO2 36 H (23-27) mmol/L ABG O2 Saturation 96 (95-100) % ABG Base Excess 10.0 H (-2-3) mmol/L FiO2 36 Sodium (137-145) mmol/L Potassium (3.4-5.1) mmol/L Chloride (98-107) mmol/L Carbon Dioxide (22-32) mmol/L BUN (9-20) mg/dL Creatinine (0.66-1.25) mg/dL Estimated GFR (>60) mL/min BUN/Creatinine Ratio (6-22) Glucose (80-110) mg/dL Hgb A1c (Ref Lab) (4.8-5.6) % Calcium (8.4-10.2) mg/dL Magnesium (1.6-2.3) mg/dL Total Bilirubin (0.2-1.3) mg/dL AST (17-59) IU/L ALT (<50) IU/L Alkaline Phosphatase (38-126) U/L Total Creatine Kinase (55-170) U/L CK-MB (CK-2) CK-MB (CK-2) Rel Index Troponin I (0.01-0.034) ng/mL NT-Pro-B Natriuret Pep (<125) pg/mL Total Protein (6.3-8.2) g/dL Albumin (3.5-5.0) g/dL Globulin (1.7-4.1) g/dL Albumin/Globulin Ratio (1.0-2.8) Lipase (23-300) U/L Procalcitonin (<0.5) ng/mL Chlamy pneumoniae PCR (Not Detect) Adenovirus (PCR) (Not Detect) B. pertussis DNA (PCR) (Not Detecte) B.parapertussis DNA PCR (Not Detecte) Coronavirus OC43 (PCR) (Not Detect) Coronavirus HKU1 (PCR) (Not Detect) Coronavirus 229E (PCR) (Not Detect) SARS-CoV-2 (PCR) (Not Detecte) Coronavirus NL63 (PCR) (Not Detect) Human Metapneumovir PCR (Not Detect) Influenza Type A (PCR) (Not Detect) Influenza Type B (PCR) (Not Detect) M. pneumoniae (PCR) (Not Detect) Parainfluenza 1 (PCR) (Not Detect) Parainfluenza 2 (PCR) (Not Detect) Parainfluenza 3 (PCR) (Not Detect) Parainfluenza 4 (PCR) (Not Detect) RSV (PCR) (Not Detect) Entero/Rhino (PCR) (Not Detect) MDM Narrative Medical decision making narrative: Patient arrived in fairly significant respiratory distress despite receiving 2 nebulizer treatments. He states that he does feel like he is improving somewhat. He received another 2 DuoNebs here in the ER any stated that he was feeling much better but not back to baseline. Another albuterol neb was ordered and he states that he does feel like he is improving and certainly not worsening.. Patient does an indeterminate troponin. That is slightly higher from prior troponins. He is tachycardic on his EKG. He is on anticoagulation. I have a low suspicion for pulmonary embolism. He does have an elevated BNP. He was given Lasix and did diurese some. He was given steroids. Was also started on antibiotics. Blood cultures were obtained. Care turned over to day provider to follow-up on the rest of his workup and for disposition. [0700] (Ian) Patient received in sign out from [Jeff]. I have reviewed the clinical course and performed an independent history and physical exam. Patient has multiple factors contributing to his shortness of breath including COPD exacerbation, CHF exacerbation as evidenced by physical exam, labs and imaging, also pneumonia. His oxygen remains relatively steady at his normal 4 L but he remains tachycardic and tachypneic with obvious increased work of breathing. He requires hospitalization for ongoing treatment and stabilization of his condition. I have discussed with the hospitalist (Dr. Fang) who is happy to accept on his service. Patient understands and agrees with the diagnosis and plan. Discharge Plan Departure Patient Disposition: Admitted as Observation Clinical Impression: Acute exacerbation of chronic obstructive pulmonary disease, Pneumonia, Acute exacerbation of CHF (congestive heart failure) Admit Date/Time: 04/25/23 10:09 Admit Provider: Froy Fang
--- NOTE | 2023-04-25 05:43 | DI.RAD.S_ITS ---
PROCEDURE: XR CHEST 1V INDICATIONS: SOB TECHNIQUE: One view of the chest was acquired. COMPARISON: [facility], CT, CT CHEST WITHOUT CONTRAST, 01/07/2023, 16:28. [facility], CR, XR CHEST 1V, 04/19/2023, 14:38. FINDINGS: Surgical changes and devices: None. Lungs and pleura: Bilateral interstitial infiltrates compatible with pulmonary edema secondary to congestive heart failure. Left basilar opacity may be infiltrate or atelectasis. Lucency in right upper lobe compatible with emphysematous bulla. No pleural effusions or pneumothorax. Mediastinum: Mediastinal contours appear normal. Heart size is moderately increased. Bones and chest wall: No suspicious bony lesions. Overlying soft tissues appear unremarkable. IMPRESSION: 1. Congestive heart failure. 2. Left basilar opacity may be pneumonia or atelectasis. 3. Emphysema. No significant discrepancy with the material handler 1st shift radiology preliminary report. Dictated by: Bartolome Skinner M.D. on 04/25/2023 at 8:30 Approved by: Bartolome Skinner M.D. on 04/25/2023 at 8:34
[2023-04-25 05:56] LABS: Add Manual Diff / Slide Review NO; Basophils Absolute Auto 100 /uL (0-100); Basophils Percent Auto 0.9 % (0-2); Eosinophils Absolute Auto 100 /uL (0-450); Eosinophils Percent Auto 0.8 % (2-4); Hematocrit 42.8 % (41-53); Hemoglobin 13.5 g/dL (13.5-17.5); Lymphocytes Absolute Auto 900 /uL (1100-4500); Lymphocytes Percent Auto 6.7 % (25-40); Mean Corpuscular HGB Conc 31.5 % (30-36); Mean Corpuscular Hemoglobin 26.3 PG (26-34); Mean Corpuscular Volume 83.6 fL (80-100); Monocytes Absolute Auto 1200 /uL (0-900); Monocytes Percent Auto 8.8 % (3-14); Neutrophils Absolute Auto 11500 /uL (1500-7000); Neutrophils Percent Auto 82.8 % (50-75); Platelet Count 182 X10^3/uL (150-400); Red Blood Cell Count 5.12 X10^6/uL (4.5-5.9); Red Cell Distribution Width 19.2 % (11.6-14.8); White Blood Cell Count 13.9 X10^3/uL (4.5-11.0)
[2023-04-25] MEDS: ALBUTEROL/IPRATROPIUM 3 ML AMPUL INH ×4 (05:57→21:16)
[2023-04-25 06:05] LABS: Alanine Aminotransferase 50 IU/L (<50); Albumin 3.9 g/dL (3.5-5.0); Albumin Globulin Ratio 1.1 (1.0-2.8); Alkaline Phosphatase 123 U/L (38-126); Aspartate Aminotransferase 39 IU/L (17-59); BUN Creatinine Ratio 23.8 (6-22); Bilirubin Total 3.5 mg/dL (0.2-1.3); Blood Urea Nitrogen 30 mg/dL (9-20); Calcium 8.8 mg/dL (8.4-10.2); Carbon Dioxide 30 mmol/L (22-32); Chloride 98 mmol/L (98-107); Creatine Kinase 110 U/L (55-170); Estimated Glomerular Filt Rate > 60 mL/min (>60); Globulin 3.5 g/dL (1.7-4.1); Glucose 178 mg/dL (80-110); HEMOLYSIS 48 (0-50); Lipase 54 U/L (23-300); Magnesium 2.1 mg/dL (1.6-2.3); Potassium 5.3 mmol/L (3.4-5.1); Sodium 134 mmol/L (137-145); Total Protein 7.4 g/dL (6.3-8.2)
[2023-04-25 06:16] LABS: NT-proBNP (BNP-Adult 18+) 13000 pg/mL (<125); Troponin I 0.081 ng/mL (0.01-0.034)
[2023-04-25] MEDS: methylPREDNISolone 125 MG/2 ML VIAL IV (06:22)
[2023-04-25] MEDS: levoFLOXacin 750 MG/150 ML PIGGYBACK 100 MG IV (06:30)
[2023-04-25] MEDS: FUROSEMIDE 40 MG/4 ML VIAL IV (06:33)
[2023-04-25] MEDS: ALBUTEROL 2.5 MG/3 ML NEB (ADULT) INH (06:33)
[2023-04-25] MEDS: SODIUM CHLORIDE 0.9% 1,000 ML 100 ML IV (06:45)
[2023-04-25 07:10] LABS: Procalcitonin 0.08 ng/mL (<0.5)
[2023-04-25 07:19] LABS: Adenovirus Not Detected (Not Detect); B. parapertussis Not Detected (Not Detecte); Bordetella pertussis Not Detected (Not Detecte); Chlamydophila pneumoniae Not Detected (Not Detect); Coronavirus 229E Not Detected (Not Detect); Coronavirus HKU1 Not Detected (Not Detect); Coronavirus NL 63 Not Detected (Not Detect); Coronavirus OC43 Not Detected (Not Detect); Human Metapneumovirus Not Detected (Not Detect); Human Rhinovirus/Enterovirus Not Detected (Not Detect); Influenza A Not Detected (Not Detect); Influenza B Not Detected (Not Detect); Mycoplasma pneumoniae Not Detected (Not Detect); Parainfluenza Virus 1 Not Detected (Not Detect); Parainfluenza Virus 2 Not Detected (Not Detect); Parainfluenza Virus 3 Not Detected (Not Detect); Parainfluenza Virus 4 Not Detected (Not Detect); Respiratory Syncytial Virus Not Detected (Not Detect); SARS- CoV-2 Not Detected (Not Detecte)
[2023-04-25 08:04] LABS: Creatine Kinase 102 U/L (55-170)
[2023-04-25 08:18] LABS: Troponin I 0.063 ng/mL (0.01-0.034)
[2023-04-25 09:07] LABS: Fractionated Inspired Oxygen 36; HCO3 ABG 34 mmol/L (23-27); Oxygen Saturation ABG 96 % (95-100); PCO2 ABG 50.1 mmHg (35-45); PO2 ABG 82 mmHg (80-100); TCO2 ABG 36 mmol/L (23-27); pH ABG 7.44 (7.35-7.45)
--- NOTE | 2023-04-25 11:05 | DI.ECHO.S_ITS ---
[facility]---------+ [facility] +---------+ : : [address] : : : : [id number] : : : : Phone: [phone]+ Echocardiogram Report + + :Name: JARRELL ROBERTO Study Date: 04/25/2023 Height: 70 in : :[facility] ReadingLocation: Weight: 160 lb : : Gender: Male BSA: 1.9 m2 : :: 1960 Age: 63 yrs BP: 159/97 mmHg: :Reason For Study: CONGESTIVE HEART FAILURE : :Ordering Physician: KRISTAL, : :EMIL Performed By: Tea Domínguez : :Referring: EMIL GIRALDO : + + Interpretation Summary The ejection fraction is estimated to be 10-15%. The patient was in sinus tachycardia with heart rates between 113-114 bpm during the exam. Right ventricular systolic function is mild to moderately reduced. There is moderate mitral regurgitation. There is moderate tricuspid regurgitation. The right ventricular systolic pressure is estimated to be at least 66 mmHg based on an estimated right atrial pressure of 15 mm Hg. Injection of contrast documented an interatrial shunt, likely a large PFO. The left atrium is severely dilated. The right atrium is moderately dilated. Procedure: A two-dimensional transthoracic echocardiogram with color flow and Doppler was performed. The study quality was technically good. Comparison is made with the echocardiogram of 04/14/2022. A saline contrast injection was performed to assess for cardiac shunting. The injection was performed through an intravenous line in the left arm. The patient was in sinus tachycardia with heart rates between 113-114 bpm during the exam. Left Ventricle: The left ventricle is moderately dilated. The estimated left ventricular end diastolic volume is 198 ml. The ejection fraction is estimated to be 10-15%. Diastolic function could not be accurately assessed due to atrial fibrillation. Right Ventricle: The right ventricle is mildly dilated. Right ventricular systolic function is mild to moderately reduced. Atria: The left atrium is severely dilated. The right atrium is moderately dilated. A patent foramen ovale is present. Injection of contrast documented an interatrial shunt. Mitral Valve: The mitral valve leaflets appear mildly thickened, but open well. There is moderate mitral regurgitation. Aortic Valve: The aortic valve is trileaflet. The aortic valve is mildly calcified. There is mild aortic valve sclerosis. There is no aortic valve stenosis. No aortic regurgitation is present. Tricuspid Valve: The tricuspid annulus is dilated. The tricuspid valve leaflets are thin and pliable. There is moderate tricuspid regurgitation. The right ventricular systolic pressure is estimated to be at least 66 mmHg based on an estimated right atrial pressure of 15 mm Hg. Pulmonic Valve: The pulmonic valve leaflets are thin and pliable; valve motion is normal. There is trace pulmonic regurgitation. Great Vessels: The aortic root is normal size. The dimensions of the ascending aorta are normal. The IVC is dilated (diameter is greater than 2.1 cm) and it collapses less than 50% with a sniff. This suggests a high right atrial pressure of 15 mm Hg. Pericardium/ Pleura There is no pericardial effusion. MMode/2D Measurements & Calculations LVIDd: 6.1 cm LVOT diam: 2.0 cm LVIDs: 5.7 cm Ao root diam: 3.5 cm FS: 6.5 % asc Aorta Diam: 3.6 cm EPSS: 1.8 cm IVSd: 1.0 cm LVPWd: 0.97 cm LV lawson. diameter/BSA (cm/m^2): 3.2 LV sys. diameter/BSA (cm/m^2): 3.0 LA A2 area: 30.2 cm2 RA long axis: 5.9 cm LA A4 area: 25.3 cm2 RA area: 24.0 cm2 LA length (vol): 6.2 cm RA vol: 83.1 ml LA vol: 104.7 ml RA : 43.8 ml/m2 LA vol index: 55.1 ml/m2 IVC diam: 3.1 cm RVD1 (basal): 4.5 cm RVD2 (mid): 4.2 cm TAPSE: 1.3 cm Doppler Measurements & Calculations Ao V2 max: 110.2 cm/sec LVOT Max Daniele: 82.4 cm/sec Ao V2 mean: 80.0 cm/sec LV V1 max P.8 mmHg Ao max P.9 mmHg LV V1 VTI: 9.4 cm Ao mean P.8 mmHg RODNEY(I,D): 1.8 cm2 Ao V2 VTI: 15.8 cm RODNEY(V,D): 2.2 cm2 sev ratio: 0.60 RODNEY indexed to BSA (cm^2/m^2): 0.95 MV E max daniele: 103.1 cm/sec TR max daniele: 357.5 cm/sec MV A max daniele: 2.3 cm/sec TR max P.1 mmHg MV E/A: 44.9 PA V2 max: 79.6 cm/sec Med Peak E' Daniele: 3.0 cm/sec PA V2 mean: 56.3 cm/sec E/E' med: 34.2 PA mean P.4 mmHg Lat Peak E' Daniele: 3.5 cm/sec PA pr(Accel): 43.0 mmHg E/E' lat: 29.3 E/e' average: 31.8 MV dec time: 0.12 sec SV(LVOT): 28.4 ml Reading Physician:SALOME
--- NOTE | 2023-04-25 11:09 | PM.HP.1 ---
History of Present Illness History of Present Illness Date Patient Seen: 04/25/23 Time Patient Seen: 10:45 Chief complaint: SOB Narrative: Pt is 63 yo male with hx COPD, on home O2 4L, current cigarette smoker, hx asbestos exposure, heart failure unknown type, pulmonary embolism, on Eliquis, leaky heart valve, BPH presented by ambulance to ED with c/o acute dyspnea. States he had sudden difficulty breathing at night which was not responding to albuterol neb. He had noticed inc difficulty with breathing over last few days. He has occasional dry cough. Denies CP. He was treated for pneumonia in March this year. He was seen in ED on 04/19 for COPD exacerbation but did not get prednisone Rx filled. Noted on ED exam to have audible wheezing. O2 sat 97-100% on 4L (normally on 4L at home). CXR showed diffuse pulmonary edema and new left base infiltrate. Labs indicated elev WBC 13.9 wi lt shift, Cr 1.26, Na 134, K 5.3, trop 0.063, NBNP 13,000, neg resp PCR. ABG on 4 L chief 7.44, pCO2 50.1, PO2 82. Pt received IV Lasix, Levaquin, nebs in ED with improvement and admitted to hospital observation status. He is seen at residency clinic at [facility]. He has not been seen by cargo checker in a few years but has appointment at [facility] in June. He lives in [facility]. Pt states he has been compliant with medications except occasionally will miss his p.m. dose of Lasix. He is currently taking Eliquis 2.5 b.i.d., carvedilol 12.5 b.i.d., Lasix 20 b.i.d., spironolactone 12.5 Zosyn 0.4 HS, aspirin 81 q.d., albuterol MDI, albuterol neb 4x/d, Stiolto respimat 2 puffs q.d., fluticasone HFA 220 2 puffs b.i.d. (RN med reconciliation pending). [facility] Social History Smoking Status: Current every day smoker Meds Home Medications and Allergies Home Medications Medication Instructions Recorded Confirmed Type albuterol sulfate 90 mcg/actuation 2 inhalation inhalation QID PRN 09/21/21 04/25/23 Rx aerosol inhaler (Ventolin HFA) shortness of breath or wheezing #6.7 grams benzonatate 100 mg capsule 100 mg PO TID PRN cough #20 caps 09/21/21 Rx (Tessalon Perles) methylprednisolone 4 mg tablets in See Rx Instructions PO .COMPLEX 09/21/21 Rx a dose pack (Medrol (Jeovany)) #21 ea albuterol sulfate 2.5 mg/3 mL 2.5 mg (3 mL) inhalation Q4H PRN 04/19/23 04/25/23 Rx (0.083 %) solution for nebulization shortness of breath or wheezing #180 mL prednisone 10 mg tablets in a dose See Rx Instructions PO .COMPLEX 04/19/23 04/25/23 Rx pack #21 ea apixaban 2.5 mg tablet (Eliquis) 2.5 mg PO BID 04/25/23 04/25/23 History fluticasone propionate 220 2 puff inhalation BID 04/25/23 04/25/23 History mcg/actuation HFA aerosol inhaler tramadol 50 mg tablet 50 mg PO Q8H PRN pain #14 tabs 04/25/23 04/25/23 Rx Allergies Allergy/AdvReac Type Severity Reaction Status Date / Time shellfish derived Allergy Verified 04/19/23 14:48 Exam Vital Signs (past 8 hours): - 04/25/23 05:40 04/25/23 06:12 04/25/23 06:04 Temperature 98.6 F Pulse Rate 122 H 122 H Respiratory Rate 38 H 30 H 40 H Blood Pressure 181/101 H Pulse Oximetry 92 98 89 L Oxygen Delivery Method Non -Rebreather Aerosol Mask Aerosol Mask Oxygen Flow Rate 6 5 7 04/25/23 06:05 04/25/23 06:05 04/25/23 06:15 Temperature Pulse Rate 122 H 119 H Respiratory Rate 40 H 33 H Blood Pressure 147/102 H Pulse Oximetry 97 98 Oxygen Delivery Method Aerosol Mask Aerosol Mask Oxygen Flow Rate 7 5 04/25/23 06:15 04/25/23 06:30 04/25/23 06:30 Temperature Pulse Rate 118 H Respiratory Rate 33 H Blood Pressure 148/98 H 142/100 H Pulse Oximetry 88 L Oxygen Delivery Method Aerosol Mask Oxygen Flow Rate 5 04/25/23 06:47 04/25/23 06:47 04/25/23 07:00 Temperature Pulse Rate 118 H Respiratory Rate 37 H Blood Pressure 143/103 H 161/102 H Pulse Oximetry 95 Oxygen Delivery Method Aerosol Mask Oxygen Flow Rate 5 04/25/23 07:00 04/25/23 07:15 04/25/23 07:15 Temperature Pulse Rate 118 H 116 H Respiratory Rate 33 H 37 H Blood Pressure 166/111 H Pulse Oximetry 97 97 Oxygen Delivery Method Non -Rebreather Oxygen Flow Rate 4 04/25/23 07:30 04/25/23 07:31 04/25/23 07:31 Temperature Pulse Rate 126 H 116 H Respiratory Rate 35 H 33 H Blood Pressure 171/78 H Pulse Oximetry 97 97 Oxygen Delivery Method Simple Mask Oxygen Flow Rate 4 04/25/23 08:00 04/25/23 08:00 04/25/23 08:15 Temperature Pulse Rate 113 H Respiratory Rate 32 H Blood Pressure 146/110 H 144/107 H Pulse Oximetry 99 Oxygen Delivery Method Oxygen Flow Rate 04/25/23 08:15 04/25/23 08:30 04/25/23 08:30 Temperature Pulse Rate 111 H 110 H Respiratory Rate 28 H Blood Pressure 160/106 H Pulse Oximetry Oxygen Delivery Method Oxygen Flow Rate 04/25/23 08:45 04/25/23 08:45 04/25/23 09:00 Temperature Pulse Rate 108 H Respiratory Rate 24 Blood Pressure 155/97 H 142/87 H Pulse Oximetry 97 Oxygen Delivery Method Simple Mask Oxygen Flow Rate 4 04/25/23 09:00 04/25/23 09:16 04/25/23 09:16 Temperature Pulse Rate 108 H 109 H Respiratory Rate 26 H 29 H Blood Pressure 143/98 H Pulse Oximetry 100 98 Oxygen Delivery Method Oxygen Flow Rate 04/25/23 09:30 04/25/23 09:30 04/25/23 09:45 Temperature Pulse Rate 109 H 109 H Respiratory Rate 28 H 25 H Blood Pressure 148/98 H Pulse Oximetry 99 99 Oxygen Delivery Method Oxygen Flow Rate 04/25/23 09:45 04/25/23 10:00 04/25/23 10:00 Temperature Pulse Rate 109 H Respiratory Rate 30 H Blood Pressure 147/98 H 154/107 H Pulse Oximetry 100 Oxygen Delivery Method Simple Mask Oxygen Flow Rate 4 04/25/23 10:25 04/25/23 10:15 04/25/23 10:15 Temperature 97.7 F Pulse Rate 109 H Respiratory Rate 24 Blood Pressure 159/97 H Pulse Oximetry 100 Oxygen Delivery Method Simple Mask Oxygen Flow Rate 4 Oxygen Delivery Method Simple Mask Oxygen Flow Rate 4 Narrative Exam Narrative: General: Alert pleasant and cooperative male sitting in chair, no acute distress HEENT: Pupils equal, EOMI Neck: No lymphadenopathy Lungs: Hyperexpanded, clear to auscultation, able to speak full sentences Heart: S1 and S2, regular rate and rhythm, no murmurs gallop or rub Abdomen: Soft, NT, no HSM Extremities: No pitting edema Neurological: Speech and affect, well oriented, no focal weakness Objective Labs 04/25/23 05:35 04/25/23 05:35 Labs: Laboratory Results - last 24 hr 04/25/23 04/25/23 04/25/23 05:35 05:35 05:35 WBC 13.9 H RBC 5.12 Hgb 13.5 Hct 42.8 MCV 83.6 MCH 26.3 MCHC 31.5 RDW 19.2 H Plt Count 182 Neut % (Auto) 82.8 H Lymph % (Auto) 6.7 L [place] % (Auto) 8.8 Eos % (Auto) 0.8 L Baso % (Auto) 0.9 Neut # (Auto) 84844 H Lymph # (Auto) 900 L [place] # (Auto) 1200 H Eos # (Auto) 100 Baso # (Auto) 100 ABG pH ABG pCO2 ABG pO2 ABG HCO3 ABG Total CO2 ABG O2 Saturation ABG Base Excess FiO2 Sodium 134 L Potassium 5.3 H D Chloride 98 Carbon Dioxide 30 BUN 30 H Creatinine 1.26 H Estimated GFR > 60 BUN/Creatinine Ratio 23.8 H Glucose 178 H Calcium 8.8 Magnesium 2.1 Total Bilirubin 3.5 H AST 39 ALT 50 H Alkaline Phosphatase 123 Total Creatine Kinase 110 CK-MB (CK-2) TNP CK-MB (CK-2) Rel Index TNP Troponin I 0.081 H NT-Pro-B Natriuret Pep 42921 H Total Protein 7.4 Albumin 3.9 Globulin 3.5 Albumin/Globulin Ratio 1.1 Lipase 54 Procalcitonin 0.08 Chlamy pneumoniae PCR Adenovirus (PCR) B. pertussis DNA (PCR) B.parapertussis DNA PCR Coronavirus OC43 (PCR) Coronavirus HKU1 (PCR) Coronavirus 229E (PCR) SARS-CoV-2 (PCR) Coronavirus NL63 (PCR) Human Metapneumovir PCR Influenza Type A (PCR) Influenza Type B (PCR) M. pneumoniae (PCR) Parainfluenza 1 (PCR) Parainfluenza 2 (PCR) Parainfluenza 3 (PCR) Parainfluenza 4 (PCR) RSV (PCR) Entero/Rhino (PCR) 04/25/23 04/25/23 04/25/23 05:58 07:50 08:54 WBC RBC Hgb Hct MCV MCH MCHC RDW Plt Count Neut % (Auto) Lymph % (Auto) [place] % (Auto) Eos % (Auto) Baso % (Auto) Neut # (Auto) Lymph # (Auto) [place] # (Auto) Eos # (Auto) Baso # (Auto) ABG pH 7.44 ABG pCO2 50.1 H ABG pO2 82 ABG HCO3 34 H ABG Total CO2 36 H ABG O2 Saturation 96 ABG Base Excess 10.0 H FiO2 36 Sodium Potassium Chloride Carbon Dioxide BUN Creatinine Estimated GFR BUN/Creatinine Ratio Glucose Calcium Magnesium Total Bilirubin AST ALT Alkaline Phosphatase Total Creatine Kinase 102 CK-MB (CK-2) TNP CK-MB (CK-2) Rel Index TNP Troponin I 0.063 H NT-Pro-B Natriuret Pep Total Protein Albumin Globulin Albumin/Globulin Ratio Lipase Procalcitonin Chlamy pneumoniae PCR Not detected Adenovirus (PCR) Not detected B. pertussis DNA (PCR) Not detected B.parapertussis DNA PCR Not detected Coronavirus OC43 (PCR) Not detected Coronavirus HKU1 (PCR) Not detected Coronavirus 229E (PCR) Not detected SARS-CoV-2 (PCR) Not detected Coronavirus NL63 (PCR) Not detected Human Metapneumovir PCR Not detected Influenza Type A (PCR) Not detected Influenza Type B (PCR) Not detected M. pneumoniae (PCR) Not detected Parainfluenza 1 (PCR) Not detected Parainfluenza 2 (PCR) Not detected Parainfluenza 3 (PCR) Not detected Parainfluenza 4 (PCR) Not detected RSV (PCR) Not detected Entero/Rhino (PCR) Not detected Assessment & Plan Assessment & Plan narrative: 1. Exacerbation of congestive heart failure -presents acutely dyspneic, chest x-ray with CHF pattern as well as LLL pneumonia no pulmonary effusion -patient has history of CHF and has been largely compliant with meds except misses occasional p.m. dose of Lasix -EKG sinus tach, LAD, old inferior CT, old anteroseptal CT -BNP 19397 -continue Lasix 40 mg IV b.i.d. -resume home meds including q.d., IV b.i.d., spironolactone 12.5 q.d. -echo -serial troponin 2. Bacterial pneumonia, left lower lobe -chest x-ray with new LLL infiltrate consistent with pneumonia, elevated WBC with left shift -received Levaquin in the ED, continue Levaquin 750 mg p.o. daily to complete 5 day course 3. Chronic hypoxic respiratory failure with possible COPD exacerbation -had audible wheeze in ED, current smoker -DuoNeb q.i.d., albuterol as needed -received Solu-Medrol in ED, continue steroid treatment with prednisone 40 mg q.d. x 4 days -continue O2 4 L which is baseline requirement at home 4. Acute kidney injury, likely prerenal secondary to CHF -creatinine versus creatinine 1.0 on ED visit 04/19 consistent with JULIOCESAR -trend GFR, mildly elevated potassium -consider KUB ultrasound if GFR is worsening 5. Anticoagulation for history of pulmonary embolism -patient started on Eliquis a couple of years ago after developed P.E. associated with COVID, patient does not recall history of AFib -continue Eliquis 2.5 b.i.d., but advised patient to review with his cargo checker whether need to continue Eliquis for cardiac reasons 6. Cigarette dependency -encouraged to quit smoking -nicotine patch 7. Hyperglycemia -glucose 178, check A1c Code status: Full code
[2023-04-25 16:41] LABS: Troponin I 0.044 ng/mL (0.01-0.034)
[2023-04-25] MEDS: FUROSEMIDE 40 MG TABLET PO (17:28)
[2023-04-25] MEDS: carvediloL 12.5 MG TABLET PO (20:57)
[2023-04-25] MEDS: TAMSULOSIN 0.4 MG CAPSULE PO (20:57)
[2023-04-25] MEDS: APIXABAN 5 MG TABLET 2.5 MG PO (20:57)
[2023-04-26] VITALS (15 sets, daily range): BP systolic 110–121; BP diastolic 54–85; PULSE 89–104; RESP 16–22; TEMP 36.2–37.1; O2SAT 91–96
[2023-04-26 04:45] LABS: Labcorp Hemoglobin (Hb) A1c 6.8 % (4.8-5.6)
[2023-04-26 05:38] LABS: Add Manual Diff / Slide Review NO; Basophils Absolute Auto 100 /uL (0-100); Basophils Percent Auto 0.8 % (0-2); Eosinophils Absolute Auto 0 /uL (0-450); Eosinophils Percent Auto 0.1 % (2-4); Hematocrit 34.1 % (41-53); Hemoglobin 11.2 g/dL (13.5-17.5); Lymphocytes Absolute Auto 600 /uL (1100-4500); Lymphocytes Percent Auto 4.8 % (25-40); Mean Corpuscular HGB Conc 32.9 % (30-36); Mean Corpuscular Hemoglobin 26.8 PG (26-34); Mean Corpuscular Volume 81.4 fL (80-100); Monocytes Absolute Auto 1100 /uL (0-900); Monocytes Percent Auto 8.8 % (3-14); Neutrophils Absolute Auto 10300 /uL (1500-7000); Neutrophils Percent Auto 85.5 % (50-75); Platelet Count 127 X10^3/uL (150-400); Red Blood Cell Count 4.18 X10^6/uL (4.5-5.9); Red Cell Distribution Width 19.1 % (11.6-14.8)
[2023-04-26 05:39] LABS: BUN Creatinine Ratio 30.9 (6-22); Blood Urea Nitrogen 38 mg/dL (9-20); Calcium 8.3 mg/dL (8.4-10.2); Carbon Dioxide 33 mmol/L (22-32); Chloride 97 mmol/L (98-107); Estimated Glomerular Filt Rate > 60 mL/min (>60); Glucose 152 mg/dL (80-110); HEMOLYSIS < 15 (0-50); Potassium 4.3 mmol/L (3.4-5.1); Sodium 134 mmol/L (137-145)
[2023-04-26] MEDS: levoFLOXacin 250 MG TABLET 750 MG PO (06:30)
[2023-04-26] MEDS: FUROSEMIDE 40 MG TABLET PO (08:08)
[2023-04-26] MEDS: carvediloL 12.5 MG TABLET PO ×2 (08:08→20:05)
[2023-04-26] MEDS: predniSONE 20 MG TABLET 40 MG PO (08:08)
[2023-04-26] MEDS: SPIRONOLACTONE 25 MG TABLET 12.5 MG PO (08:08)
[2023-04-26] MEDS: ASPIRIN EC 81 MG TABLET PO (08:08)
[2023-04-26] MEDS: APIXABAN 5 MG TABLET 2.5 MG PO ×2 (08:09→20:05)
--- NOTE | 2023-04-26 08:36 | PM.PN.1 ---
Subjective Subjective Interval history: Patient is feeling better. [employer] rep contacted today due to echo showing EF of 10-15%. Exam Vital Signs (past 8 hours): - 04/26/23 00:45 04/26/23 04:50 04/26/23 03:00 Temperature 97.1 F L 97.5 F L Pulse Rate 104 H 101 H Respiratory Rate 19 17 Blood Pressure 116/62 114/54 L Pulse Oximetry 92 92 92 Oxygen Delivery Method Oximask Oxygen Flow Rate 0 2 1.5 04/26/23 08:08 Temperature Pulse Rate 97 H Respiratory Rate Blood Pressure 121/85 Pulse Oximetry Oxygen Delivery Method Oxygen Flow Rate Fraction of Inspired Oxygen 24 SaO2/FiO2 Ratio 387 Oxygen Delivery Method Oximask Oxygen Flow Rate 2 Narrative Exam Narrative: General: Alert pleasant and cooperative male sitting in chair, no acute distress HEENT: Pupils equal, EOMI Neck: No lymphadenopathy Lungs: Hyperexpanded, clear to auscultation, able to speak full sentences Heart: S1 and S2, regular rate and rhythm, no murmurs gallop or rub Abdomen: Soft, NT, no HSM Extremities: No pitting edema Neurological: Speech and affect, well oriented, no focal weakness Objective Labs 04/26/23 05:10 04/26/23 05:10 Labs: Laboratory Results - last 24 hr 04/25/23 04/25/23 04/25/23 05:25 08:54 16:10 WBC RBC Hgb Hct MCV MCH MCHC RDW Plt Count Neut % (Auto) Lymph % (Auto) [place] % (Auto) Eos % (Auto) Baso % (Auto) Neut # (Auto) Lymph # (Auto) [place] # (Auto) Eos # (Auto) Baso # (Auto) ABG pH 7.44 ABG pCO2 50.1 H ABG pO2 82 ABG HCO3 34 H ABG Total CO2 36 H ABG O2 Saturation 96 ABG Base Excess 10.0 H FiO2 36 Sodium Potassium Chloride Carbon Dioxide BUN Creatinine Estimated GFR BUN/Creatinine Ratio Glucose Hgb A1c (Ref Lab) 6.8 H Calcium Troponin I 0.044 H 04/26/23 04/26/23 05:10 05:10 WBC 12.0 H RBC 4.18 L Hgb 11.2 L Hct 34.1 L MCV 81.4 MCH 26.8 MCHC 32.9 RDW 19.1 H Plt Count 127 L Neut % (Auto) 85.5 H Lymph % (Auto) 4.8 L [place] % (Auto) 8.8 Eos % (Auto) 0.1 L Baso % (Auto) 0.8 Neut # (Auto) 88140 H Lymph # (Auto) 600 L [place] # (Auto) 1100 H Eos # (Auto) 0 Baso # (Auto) 100 ABG pH ABG pCO2 ABG pO2 ABG HCO3 ABG Total CO2 ABG O2 Saturation ABG Base Excess FiO2 Sodium 134 L Potassium 4.3 Chloride 97 L Carbon Dioxide 33 H BUN 38 H Creatinine 1.23 Estimated GFR > 60 BUN/Creatinine Ratio 30.9 H Glucose 152 H Hgb A1c (Ref Lab) Calcium 8.3 L Troponin I [facility] Social History household members: none Smoking Status: Current every day smoker alcohol intake: current Assessment & Plan Assessment & Plan narrative: 1. Exacerbation of congestive heart failure -presents acutely dyspneic, chest x-ray with CHF pattern as well as LLL pneumonia no pulmonary effusion -patient has history of CHF and has been largely compliant with meds except misses occasional p.m. dose of Lasix -EKG sinus tach, LAD, old inferior MT, old anteroseptal MT -BNP 61871 -continue Lasix 40 mg IV b.i.d. -resume home meds including q.d., IV b.i.d., spironolactone 12.5 q.d. -echo with EF 10-15%, which is worsened from prior of 20% in 04/2022 -serial troponin 2. Bacterial pneumonia, left lower lobe -chest x-ray with new LLL infiltrate consistent with pneumonia, elevated WBC with left shift -received Levaquin in the ED, continue Levaquin 750 mg p.o. daily to complete 5 day course 3. Chronic hypoxic respiratory failure with possible COPD exacerbation -had audible wheeze in ED, current smoker -DuoNeb q.i.d., albuterol as needed -received Solu-Medrol in ED, continue steroid treatment with prednisone 40 mg q.d. x 4 days -continue O2 4 L which is baseline requirement at home -no wheezes on exam 4. Acute kidney injury, likely prerenal secondary to CHF, resolved -creatinine versus creatinine 1.0 on ED visit 04/19 consistent with JULIOCESAR -trend GFR, mildly elevated potassium -Cr now normalized 5. Anticoagulation for history of pulmonary embolism -patient started on Eliquis a couple of years ago after developed P.E. associated with COVID, patient does not recall history of AFib -continue Eliquis 2.5 b.i.d., but advised patient to review with his reimbursement spec whether need to continue Eliquis for cardiac reasons 6. Cigarette dependency -encouraged to quit smoking -nicotine patch 7. New-onset DM2 -A1c 6.8%. Previously 6.2% in 04/2022. -low dose SSI and start metformin on discharge Code status: Full code Dispo: Home once [facility] is fitted in 1-2 days. Quality VTE Deep Vein Thrombosis/Pulmonary Embolism Present on Admission: No
--- NOTE | 2023-04-26 09:35 | CM.DANOTE ---
Patient is a 63 yo male who was admitted on 04/25/23 for SOB. Pt has [employer] for insurance and his PCP is at the [facility]. EMR was reviewed. Per MD, pt with hxo f COPD with home oxygen at baseline and admitted for CHF exacerbation and likely pneumonia. SW met bedside with pt and explained role and pt confirms he is currently living in his motor home at [facility] in [facility] but has local adult son and local supportive Sig Other. Pt is active and independent at baseline but does have 4L home O2 at baseline and still smokes. 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 Pt is currently going through some financial stressors of attempting to get a loan and also he was recently dropped from the housing program through [employer] that he was involved with for the past 6-7 years. Pt does not anticipate any needs at d/c and does not use DME for ambulation and denies any hx of SNF or HH and states his Sig Other or son can provide transport at d/c. Plan: SW to follow for plan of discharge to his motor home via family POV and any further identified discharge planning needs. NICHOLAS Ro Discharge Planning/Care Management CM Discharge Assessment Start: 04/26/23 09:33 Freq: Status: Active Protocol: Document 04/26/23 09:34 BF (Rec: 04/26/23 09:35 BF [id number]) Discharge Planning Assessment Assigned Chemical Blender NICHOLAS Garcia DPOA/Assigned Designee Name none, informally son Contact Information [phone] Advance Directives? Yes Advance Directives on File Yes History Provided By Patient,Medical Record Has Patient been admitted in last 30 No days? Prior Living Arrangements RV Household Members none Type of transporation used prior to Drives own vehicle admit Independent with ADL's Yes Is patient alert and oriented? Yes Caregiver for Another No DME Already Rented / Owned Oxygen Comment 4Lhome O2 Barriers to Discharge No Discharge Plan Home Community Services Oxygen Therapy Transportation Arrangement Pt's Sig Other or adult son to transport Referrals Initiated None needed Whiteboard Updated in Patient Room with Yes name and ext. # of Chemical Blender Review Status In Process Please Provide Date Initial DC 04/26/23 Assessment Was Performed Next Review Type Continued Stay Review
[2023-04-26] MEDS: lisinopriL 5 MG TABLET 2.5 MG PO (09:41)
[2023-04-26] MEDS: ALBUTEROL/IPRATROPIUM 3 ML AMPUL INH ×2 (10:14→16:05)
[2023-04-26] MEDS: FUROSEMIDE 40 MG/4 ML VIAL IV (15:38)
[2023-04-26] MEDS: INSULIN LISPRO 100 UNIT/ML 3ML VIAL SUBCUT (17:06)
--- NOTE | 2023-04-26 17:37 | PC.NURSE ---
Day shift: Patient started on QAC/HS BG checks per MD Bradshaw's order - A1C 6.8. BG 150 at dinner - 1u Humalog given. Pt OOB independently. Continues to be on 1-3L O2 via simple mask. Pt gets short of breath easily with exertion. Cap refill in feet approximately 7 seconds. Minimal swelling, though B feet and hands are red with some clubbing. Tele - normal sinus. HR 97. Plan likely d/c home tomorrow. Will continue to monitor.
[2023-04-26] MEDS: TAMSULOSIN 0.4 MG CAPSULE PO (20:06)
[2023-04-26] MEDS: TRAMADOL 50 MG TABLET PO (22:46)
--- NOTE | 2023-04-26 23:43 | PC.NURSE ---
Nightshift Pt had a run of Vtac 5 beat run at rate of 153, Pt was asymptomatic. One hour later Pt had a 17 beat run atrial tac @ 165 asymptomatic. RN reassessed Pt lungs still diminished in lower lobes with Left side base some crackles. bilateral hands and feet nail have clubbing present and cap refill in bilateral feet 7+ seconds and cool to touch. Pt is currently on 3 liters O2 simple mask 92%. Notified provider. M.D. ordered labs BNP and Mag. will continue to monitor.
[2023-04-27] VITALS (10 sets, daily range): BP systolic 107–120; BP diastolic 72–84; PULSE 62–86; RESP 15–22; TEMP 36–36.3; O2SAT 90–98
[2023-04-27 01:06] LABS: BUN Creatinine Ratio 30.6 (6-22); Blood Urea Nitrogen 48 mg/dL (9-20); Calcium 8.3 mg/dL (8.4-10.2); Carbon Dioxide 36 mmol/L (22-32); Chloride 95 mmol/L (98-107); Estimated Glomerular Filt Rate 50 mL/min (>60); Glucose 110 mg/dL (80-110); HEMOLYSIS < 15 (0-50); Magnesium 1.8 mg/dL (1.6-2.3); Sodium 133 mmol/L (137-145)
[2023-04-27 01:15] LABS: NT-proBNP (BNP-Adult 18+) 9400 pg/mL (<125)
[2023-04-27] MEDS: MAGNESIUM SULFATE 2 GM/50 ML PIGGYBACK IV (06:51)
[2023-04-27] MEDS: levoFLOXacin 250 MG TABLET 750 MG PO (06:51)
[2023-04-27 07:30] LABS: Add Manual Diff / Slide Review NO; Basophils Absolute Auto 0 /uL (0-100); Basophils Percent Auto 0.1 % (0-2); Eosinophils Absolute Auto 0 /uL (0-450); Eosinophils Percent Auto 0.3 % (2-4); Hematocrit 36.2 % (41-53); Hemoglobin 11.8 g/dL (13.5-17.5); Lymphocytes Absolute Auto 1100 /uL (1100-4500); Lymphocytes Percent Auto 8.8 % (25-40); Mean Corpuscular HGB Conc 32.5 % (30-36); Mean Corpuscular Hemoglobin 26.8 PG (26-34); Mean Corpuscular Volume 82.3 fL (80-100); Monocytes Absolute Auto 1100 /uL (0-900); Monocytes Percent Auto 9.1 % (3-14); Neutrophils Absolute Auto 10200 /uL (1500-7000); Neutrophils Percent Auto 81.7 % (50-75); Platelet Count 143 X10^3/uL (150-400); Red Cell Distribution Width 19.2 % (11.6-14.8); White Blood Cell Count 12.5 X10^3/uL (4.5-11.0)
[2023-04-27 07:40] LABS: BUN Creatinine Ratio 32.9 (6-22); Blood Urea Nitrogen 47 mg/dL (9-20); Calcium 8.3 mg/dL (8.4-10.2); Carbon Dioxide 34 mmol/L (22-32); Chloride 96 mmol/L (98-107); Estimated Glomerular Filt Rate 56 mL/min (>60); Glucose 89 mg/dL (80-110); HEMOLYSIS < 15 (0-50); Potassium 3.9 mmol/L (3.4-5.1); Sodium 134 mmol/L (137-145)
[2023-04-27] MEDS: APIXABAN 5 MG TABLET 2.5 MG PO (08:56)
[2023-04-27] MEDS: ASPIRIN EC 81 MG TABLET PO (08:57)
[2023-04-27] MEDS: SPIRONOLACTONE 25 MG TABLET 12.5 MG PO (08:57)
[2023-04-27] MEDS: lisinopriL 5 MG TABLET 2.5 MG PO (08:57)
[2023-04-27] MEDS: carvediloL 12.5 MG TABLET PO (08:57)
[2023-04-27] MEDS: predniSONE 20 MG TABLET 40 MG PO (08:58)
[2023-04-27] MEDS: ALBUTEROL/IPRATROPIUM 3 ML AMPUL INH ×2 (09:26→15:41)
--- NOTE | 2023-04-27 13:02 | P.DS_ITS ---
History of Present Illness History of Present Illness Date Patient Seen: 04/25/23 Time Patient Seen: 10:45 Chief complaint: SOB Narrative: Pt is 63 yo male with hx COPD, on home O2 4L, current cigarette smoker, hx asbestos exposure, heart failure unknown type, pulmonary embolism, on Eliquis, leaky heart valve, BPH presented by ambulance to ED with c/o acute dyspnea. States he had sudden difficulty breathing at night which was not responding to albuterol neb. He had noticed inc difficulty with breathing over last few days. He has occasional dry cough. Denies CP. He was treated for pneumonia in March this year. He was seen in ED on 04/19 for COPD exacerbation but did not get prednisone Rx filled. Noted on ED exam to have audible wheezing. O2 sat 97-100% on 4L (normally on 4L at home). CXR showed diffuse pulmonary edema and new left base infiltrate. Labs indicated elev WBC 13.9 wi lt shift, Cr 1.26, Na 134, K 5.3, trop 0.063, NBNP 13,000, neg resp PCR. ABG on 4 L chief 7.44, pCO2 50.1, PO2 82. Pt received IV Lasix, Levaquin, nebs in ED with improvement and admitted to hospital observation status. He is seen at residency clinic at [facility]. 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 He lives in [facility]. Pt states he has been compliant with medications except occasionally will miss his p.m. dose of Lasix. He is currently taking Eliquis 2.5 b.i.d., carvedilol 12.5 b.i.d., Lasix 20 b.i.d., spironolactone 12.5 Zosyn 0.4 HS, aspirin 81 q.d., albuterol MDI, albuterol neb 4x/d, Stiolto respimat 2 puffs q.d., fluticasone HFA 220 2 puffs b.i.d. (RN med reconciliation pending). Discharge Providers Provider Date of admission: 04/25/23 10:09 Discharge Date: 04/27/23 Discharge provider: Jemal Bradshaw DO Summary Hospital Course Discharge Diagnosis: 1. Exacerbation of congestive heart failure -presents acutely dyspneic, chest x-ray with CHF pattern as well as LLL pneumonia no pulmonary effusion -patient has history of CHF and has been largely compliant with meds except misses occasional p.m. dose of Lasix -EKG sinus tach, LAD, old inferior OH, old anteroseptal OH -BNP 53860 -received Lasix 40 mg IV b.i.d. and symptoms improved -resume home meds including coreg 12.5 b.i.d., spironolactone 12.5 q.d. -echo with EF 10-15%, which is worsened from prior of 20% in 04/2022 -enrolled patient with [employer] external defibrillator as a bridge until he can have an AICD placed -placed on lisinopril 2.5mg daily -has cardiology f/u with Dr. Baker on 06/13 2. Bacterial pneumonia, left lower lobe -chest x-ray with new LLL infiltrate consistent with pneumonia, elevated WBC with left shift -received Levaquin in the ED, continue Levaquin 750 mg p.o. daily to complete 5 day course 3. Chronic hypoxic respiratory failure with possible COPD exacerbation -had audible wheeze in ED, current smoker -DuoNeb q.i.d., albuterol as needed -received Solu-Medrol in ED, continue steroid treatment with prednisone 40 mg q.d. x 4 days -continue O2 4 L which is baseline requirement at home -no wheezes on exam 4. Acute kidney injury, likely prerenal secondary to CHF, resolved -creatinine versus creatinine 1.0 on ED visit 04/19 consistent with JULIOCESAR -trend GFR, mildly elevated potassium -Cr now normalized 5. Anticoagulation for history of pulmonary embolism -patient started on Eliquis a couple of years ago after developed P.E. associat ed with COVID, patient does not recall history of AFib -continue Eliquis 2.5 b.i.d., but advised patient to review with his air crew supervisor whether need to continue Eliquis for cardiac reasons 6.? Cigarette dependency -encouraged to quit smoking -nicotine patch 7.? New-onset DM2 -A1c 6.8%. Previously 6.2% in 04/2022. -low dose SSI and started metformin on discharge Hospital Course: Admitted for CHF, PNA and COPD exac. Put on IV lasix, steroids and abx. Echo showed worsened EF of 10-15% down from 20% a year ago. Enrolled in the [employer] device as a bridge until he can have an AICD placed. Already on coreg and spironolactone, but not HALLE so lisinopril was added at 2.5 mg daily. He will f/u with Dr. Baker cardiology on 06/13 to possibly switch to entresto and have referral for AICD placement. Dc home on a few more days of po prednisone and lev aquin. Time Spent with Patient Time spent: Greater than 30 minutes Exam Vital Signs (past 8 hours): - 04/27/23 08:57 04/27/23 08:57 04/27/23 09:18 Temperature Pulse Rate 79 79 Respiratory Rate Blood Pressure 110/81 110/81 Pulse Oximetry 90 L Oxygen Delivery Method Room Air Oxygen Flow Rate 0 04/27/23 09:27 04/27/23 09:10 Temperature 96.8 F L Pulse Rate 62 75 Respiratory Rate 15 20 Blood Pressure 108/73 Pulse Oximetry 94 94 Oxygen Delivery Method Nasal Cannula Oxygen Flow Rate 2.5 2 Fraction of Inspired Oxygen 24 SaO2/FiO2 Ratio 387 Oxygen Delivery Method Room Air Oxygen Flow Rate 2.5 Narrative Exam Narrative: General: Alert pleasant and cooperative male sitting in chair, no acute distress HEENT: Pupils equal, EOMI Neck: No lymphadenopathy Lungs: Hyperexpanded, clear to auscultation, able to speak full sentences Heart: S1 and S2, regular rate and rhythm, no murmurs gallop or rub Abdomen: Soft, NT, no HSM Extremities: No pitting edema Neurological: Speech and affect, well oriented, no focal weakness Objective Labs 04/27/23 06:00 04/27/23 06:00 Labs: Laboratory Results - last 24 hr 04/26/23 04/26/23 04/26/23 05:10 23:59 23:59 WBC RBC Hgb Hct MCV MCH MCHC RDW Plt Count Neut % (Auto) Lymph % (Auto) [place] % (Auto) Eos % (Auto) Baso % (Auto) Neut # (Auto) Lymph # (Auto) [place] # (Auto) Eos # (Auto) Baso # (Auto) Sodium 134 L 133 L Potassium 4.3 4.0 Chloride 97 L 95 L Carbon Dioxide 33 H 36 H BUN 38 H 48 H Creatinine 1.23 1.57 H Estimated GFR > 60 50 L BUN/Creatinine Ratio 30.9 H 30.6 H Glucose 152 H 110 Calcium 8.3 L 8.3 L Magnesium 1.8 NT-Pro-B Natriuret Pep 9400 H 04/27/23 04/27/23 06:00 06:00 WBC 12.5 H RBC 4.40 L Hgb 11.8 L Hct 36.2 L MCV 82.3 MCH 26.8 MCHC 32.5 RDW 19.2 H Plt Count 143 L Neut % (Auto) 81.7 H Lymph % (Auto) 8.8 L [place] % (Auto) 9.1 Eos % (Auto) 0.3 L Baso % (Auto) 0.1 Neut # (Auto) 17525 H Lymph # (Auto) 1100 [place] # (Auto) 1100 H Eos # (Auto) 0 Baso # (Auto) 0 Sodium 134 L Potassium 3.9 Chloride 96 L Carbon Dioxide 34 H BUN 47 H Creatinine 1.43 H Estimated GFR 56 L BUN/Creatinine Ratio 32.9 H Glucose 89 Calcium 8.3 L Magnesium NT-Pro-B Natriuret Pep PFSH Social History household members: none Smoking Status: Current every day smoker alcohol intake: current Discharge Plan Discharge Plan Patient Disposition: Home Provider Discharge Comment: You were admitted for worsening heart failure and possible pneumonia. We found that your heart function is now down to 10-15%, and previously was 20% 1 year ago. I started you on lisinopril at a low dose because of this. Take the rest of your cardiac medications as currently prescribed. We contacted the [facility] to have you set up with this as a bridge for a implantable defibrillator (ICD). You ABSOLUTELY need to follow-up with cardiology with Dr. Baker for your appointment on 06/13 so he can assess your heart failure and refer you for an ICD placement. You will finish 3 days of steroids and antibiotics at home. We also found your now diabetic so I am starting you on metformin. Discharge orders & Medications Prescriptions: New tramadol 50 mg tablet 50 mg PO Q8H PRN (Reason: pain) Qty: 14 0RF lisinopril 2.5 mg tablet 2.5 mg PO DAILY 90 Days Qty: 90 0RF metformin 500 mg tablet 500 mg PO BIDWMEAL Qty: 180 0RF Continued albuterol sulfate [Ventolin HFA] 90 mcg/actuation HFA aerosol inhaler 2 inhalation INHALATION QID PRN (Reason: shortness of breath or wheezing) Qty: 6.7 0RF albuterol sulfate 2.5 mg /3 mL (0.083 %) solution for nebulization 2.5 mg inhalation Q4H PRN (Reason: shortness of breath or wheezing) Qty: 180 0RF prednisone 10 mg tablets,dose pack See Rx Instructions .ROUTE .COMPLEX Qty: 21 0RF Rx Instructions: Take 6 tablets p.o. x1 day, then 5 tablets p.o. x1 day, then 4 tablets p.o. x1 day, then 3 tablets p.o. x1 day, then 2 tablets p.o. x1 day, then 1 tablet p.o. x1 day fluticasone propionate 220 mcg/actuation HFA aerosol inhaler 2 puff INHALATION BID Patient Comments: inhale 2 puffs by mouth and INTO THE LUNGS twice a day Eliquis 2.5 mg tablet 2.5 mg PO BID Patient Comments: take 1 tablet by mouth twice a day tamsulosin 0.4 mg capsule 0.4 mg PO BEDTIME Patient Comments: take 1 capsule by mouth nightly if needed aspirin 81 mg tablet,delayed release (DR/EC) 81 mg PO DAILY Patient Comments: take 1 tablet by mouth once daily furosemide 20 mg tablet 20 mg PO BID Patient Comments: take 1 tablet by mouth twice a day spironolactone 25 mg tablet 12.5 mg PO DAILY Patient Comments: take 1/2 tablet by mouth once daily Follow up/Referrals: Nithya Baker MD [Physician] - 06/13/23 Visit Report/Discharge Packet Instructions: Lifestyle Changes as Effective as Drugs in Preventing Progression to Diabet, Complications of Type 2 Diabetes, DI for Pneumonia -- Adult, DI for Diabetes Type 2 Stand Alone Forms: Patient Portal/API, Stroke Signs & Symptoms Discharges patient from system. Discharge Date/Time: 04/27/23 16:08 Quality VTE Deep Vein Thrombosis/Pulmonary Embolism Present on Admission: No
--- NOTE | 2023-04-27 14:58 | CM.DPNOTE ---
Discharge Planning Note: Patient has discharge orders. The [employer] he needs will be fitted by rep who will contact patient and arrange visit with him at home. He lives alone in motor home, home O2 at baseline and independent. Plan: Home with family to transport. Follow up appointment with cardiology. Alpa Blanco RN/DCP
== END 2023-04-27 16:08 | disposition home or self-care (01) | DRG 194 ==
LOC: ED 10:05 → AC 10:26
PROVIDERS: Emergency Medicine; Internal Medicine; Student in an Organized Health Care Education/Training Program; Admitting Provider Internal Medicine; Emergency Provider Emergency Medicine; Referring Provider Emergency Medicine; Visit Provider Internal Medicine
DX: I50.9 Heart failure, unspecified (principal); J18.9 Pneumonia, unspecified organism; N17.9 Acute kidney failure, unspecified; J96.11 Chronic respiratory failure with hypoxia; J44.1 Chronic obstructive pulmonary disease with (acute) exacerbation; F17.210 Nicotine dependence, cigarettes, uncomplicated; N40.0 Benign prostatic hyperplasia without lower urinary tract symptoms; E11.65 Type 2 diabetes mellitus with hyperglycemia; Z86.711 Personal history of pulmonary embolism; Z79.01 Long term (current) use of anticoagulants; Z99.81 Dependence on supplemental oxygen; Z20.822 Contact with and (suspected) exposure to COVID-19
CPT/HCPCS: 36415; 36600; 71045; 80048; 80053; 82550; 82805; 82962; 83036; 83690; 83735; 83880; 84145; 84484; 85025; 87040; 87633; 93005; 93306; 94640; 94760; 96365; 96366; 96375; 99285; G0378; J1815; J1940; J1956; J2930; J3475; J7613